=== PATIENT | male | born 1960 | race Caucasian/White ===

== ENCOUNTER 2016-07-04 08:00 | Outpatient (CLI) | payer OTHER | END 2016-07-04 08:01 | disposition home or self-care (01) | DX: I10 Essential (primary) hypertension (principal); E78.5 Hyperlipidemia, unspecified ==

== ENCOUNTER 2016-07-25 07:43 | Outpatient (CLI) | payer OTHER | END 2016-07-25 07:44 | disposition home or self-care (01) | DX: E53.9 Vitamin B deficiency, unspecified (principal) ==

== ENCOUNTER 2016-08-22 10:44 | Outpatient (CLI) | payer OTHER | END 2016-08-22 10:45 | disposition home or self-care (01) | DX: E87.5 Hyperkalemia (principal) ==

== ENCOUNTER 2016-10-24 08:27 | Outpatient (CLI) | payer OTHER ==
[2016-10-24 12:55] LABS: BASOPHILS # (AUTO) 0.1 10^3/uL (0.0-0.1); BASOPHILS % (AUTO) 0.7 %; EOSINOPHILS # (AUTO) 0.8 10^3/uL (0.0-0.7); EOSINOPHILS % (AUTO) 8.3 %; HCT - HEMATOCRIT 32.9 % (42.0-52.0); HGB - HEMOGLOBIN 11.6 g/dL (14.0-18.0); LYMPHOCYTES # (AUTO) 1.8 10^3/uL (1.5-3.5); MEAN CORPUSCULAR HEMOGLOBIN 30.2 pg (27.0-31.0); MEAN CORPUSCULAR HGB CONC 35.3 g/dL (32.0-36.0); MEAN CORPUSCULAR VOLUME 85.7 fL (80.0-94.0); MEAN PLATELET VOLUME 9.4 fL (7.4-11.4); MONOCYTES # (AUTO) 0.5 10^3/uL (0.0-1.0); MONOCYTES % (AUTO) 5.7 %; NEUTROPHILS # (AUTO) 6.3 10^3/uL (1.5-6.6); NEUTROPHILS % (AUTO) 66.3 %; RED BLOOD COUNT 3.84 10^6/uL (4.70-6.10); RED CELL DISTRIBUTION WIDTH 13.3 % (12.0-15.0); UNCORRECTED WHITE BLOOD COUNT 9.6 x10^3/uL; WHITE BLOOD COUNT 9.6 x10^3/uL (4.8-10.8)
[2016-10-24 13:31] LABS: ALBUMIN/GLOBULIN RATIO 1.3 (1.0-2.2); BILIRUBIN,TOTAL 0.5 mg/dL (0.2-1.0); BUN - BLOOD UREA NITROGEN 31 mg/dL (6-20); CALCIUM 9.3 mg/dL (8.5-10.3); CARBON DIOXIDE - CO2 24 mmol/L (21-32); CHLORIDE 106 mmol/L (101-111); CHOL/HDL RATIO 4.3 (<5.0); CHOLESTEROL 116 mg/dL; CREATININE 1.3 mg/dL (0.6-1.2); GFR - MDRD 57 (>89); GLUCOSE 210 mg/dL (70-100); HDL CHOLESTEROL 27 mg/dL; LDL/HDL RATIO 2.4 (<3.6); POTASSIUM 5.3 mmol/L (3.5-5.0); SODIUM 137 mmol/L (135-145); TOTAL PROTEIN 7.5 g/dL (6.7-8.2); TRIGLYCERIDES 119 mg/dL; VLDL CHOLESTEROL 24 mg/dL
[2016-10-24 14:52] LABS: HEMOGLOBIN A1C 0.91 g/dL
== END 2016-10-24 08:28 | disposition home or self-care (01) ==
LOC: LAB.WCP 08:27
PROVIDERS: ATTEND Family Medicine
DX: E87.5 Hyperkalemia (principal); E78.5 Hyperlipidemia, unspecified; E10.9 Type 1 diabetes mellitus without complications; E03.9 Hypothyroidism, unspecified; I10 Essential (primary) hypertension
CPT/HCPCS: 36415; 80053; 80061; 82043; 83036; 84443; 85025

== ENCOUNTER 2017-08-07 08:00 | Outpatient (CLI) | payer OTHER | END 2017-08-07 08:01 | LOC: LAB.WCP 08:00 | PROVIDERS: ATTEND Family Medicine | DX: E53.8 Deficiency of other specified B group vitamins (principal) | CPT/HCPCS: 36415; 82607 ==

== ENCOUNTER 2018-09-09 09:09 | Outpatient (CLI) | payer BC, OTHER ==
[2018-09-09 12:28] LABS: BASOPHILS # (AUTO) 0.1 10^3/uL (0.0-0.1); BASOPHILS % (AUTO) 0.9 %; EOSINOPHILS # (AUTO) 0.4 10^3/uL (0.0-0.7); EOSINOPHILS % (AUTO) 4.8 %; HGB - HEMOGLOBIN 12.6 g/dL (14.0-18.0); LYMPHOCYTES # (AUTO) 1.4 10^3/uL (1.5-3.5); LYMPHOCYTES % (AUTO) 17.8 %; MEAN CORPUSCULAR HEMOGLOBIN 29.2 pg (27.0-31.0); MEAN CORPUSCULAR HGB CONC 33.8 g/dL (32.0-36.0); MEAN CORPUSCULAR VOLUME 86.3 fL (80.0-94.0); MEAN PLATELET VOLUME 11.6 fL (7.4-11.4); MONOCYTES # (AUTO) 0.6 10^3/uL (0.0-1.0); MONOCYTES % (AUTO) 7.9 %; NEUTROPHILS # (AUTO) 5.3 10^3/uL (1.5-6.6); NEUTROPHILS % (AUTO) 68.3 %; PLT - PLATELET COUNT 199 10^3/uL (130-450); RED BLOOD COUNT 4.32 10^6/uL (4.70-6.10); RED CELL DISTRIBUTION WIDTH 12.7 % (12.0-15.0); WHITE BLOOD COUNT 7.7 x10^3/uL (4.8-10.8)
[2018-09-09 12:49] LABS: ALBUMIN 4.3 g/dL (3.2-5.5); ALBUMIN/GLOBULIN RATIO 1.1 (1.0-2.2); ALKALINE PHOSPHATASE 33 IU/L (42-121); ALT ALANINE AMINOTRANSFERASE 21 IU/L (10-60); AST ASPARTATE AMINOTRANSFERASE 21 IU/L (10-42); BILIRUBIN,TOTAL 0.8 mg/dL (0.2-1.0); BUN - BLOOD UREA NITROGEN 25 mg/dL (6-20); CALCIUM 9.2 mg/dL (8.5-10.3); CARBON DIOXIDE - CO2 24 mmol/L (21-32); CHLORIDE 104 mmol/L (101-111); CHOL/HDL RATIO 6.5 (<5.0); CHOLESTEROL 181 mg/dL; CREATININE 1.4 mg/dL (0.6-1.2); GFR - MDRD 52 (>89); GLUCOSE 180 mg/dL (70-100); HDL CHOLESTEROL 28 mg/dL; LDL CHOLESTEROL,CALCULATED 114 mg/dL; LDL/HDL RATIO 4.1 (<3.6); SODIUM 139 mmol/L (135-145); TOTAL PROTEIN 8.2 g/dL (6.7-8.2); VLDL CHOLESTEROL 39 mg/dL
== END 2018-09-09 09:10 | disposition home or self-care (01) ==
LOC: LAB.WCP 09:09
PROVIDERS: ATTEND Family Medicine
DX: I10 Essential (primary) hypertension (principal); E78.5 Hyperlipidemia, unspecified; E03.9 Hypothyroidism, unspecified
CPT/HCPCS: 36415; 80053; 80061; 83721; 84443; 85025

== ENCOUNTER 2018-09-27 08:00 | Outpatient (CLI) | payer BC ==
[2018-09-27 12:52] LABS: ALBUMIN 4.4 g/dL (3.2-5.5); ALBUMIN/GLOBULIN RATIO 1.3 (1.0-2.2); ALKALINE PHOSPHATASE 33 IU/L (42-121); ALT ALANINE AMINOTRANSFERASE 23 IU/L (10-60); AST ASPARTATE AMINOTRANSFERASE 20 IU/L (10-42); BILIRUBIN,TOTAL 0.5 mg/dL (0.2-1.0); BUN - BLOOD UREA NITROGEN 21 mg/dL (6-20); CALCIUM 9.2 mg/dL (8.5-10.3); CARBON DIOXIDE - CO2 26 mmol/L (21-32); CHLORIDE 103 mmol/L (101-111); CHOL/HDL RATIO 4.1 (<5.0); CHOLESTEROL 119 mg/dL; CREATININE 1.3 mg/dL (0.6-1.2); GFR - MDRD 57 (>89); GLUCOSE 132 mg/dL (70-100); HDL CHOLESTEROL 29 mg/dL; LDL CHOLESTEROL,CALCULATED 66 mg/dL; LDL/HDL RATIO 2.3 (<3.6); SODIUM 140 mmol/L (135-145); TOTAL PROTEIN 7.9 g/dL (6.7-8.2); VLDL CHOLESTEROL 24 mg/dL
[2018-09-27 13:37] LABS: FREE T4 (FREE THYROXINE) 1.07 ng/dL (0.58-1.64)
== END 2018-09-27 23:59 | disposition home or self-care (01) ==
LOC: LAB.WCP 08:00
PROVIDERS: ATTEND Family Medicine
DX: E78.5 Hyperlipidemia, unspecified (principal); N28.9 Disorder of kidney and ureter, unspecified; E03.9 Hypothyroidism, unspecified
CPT/HCPCS: 36415; 80053; 80061; 83721; 84439; 84443

== ENCOUNTER 2018-12-10 08:00 | Outpatient (CLI) | payer BC ==
[2018-12-10 13:06] LABS: ALBUMIN 4.1 g/dL (3.2-5.5); ALBUMIN/GLOBULIN RATIO 1.2 (1.0-2.2); ALKALINE PHOSPHATASE 38 IU/L (42-121); ALT ALANINE AMINOTRANSFERASE 24 IU/L (10-60); AST ASPARTATE AMINOTRANSFERASE 18 IU/L (10-42); BILIRUBIN,TOTAL 0.5 mg/dL (0.2-1.0); BUN - BLOOD UREA NITROGEN 20 mg/dL (6-20); CHOLESTEROL 105 mg/dL; CREATININE 1.3 mg/dL (0.6-1.2); GFR - MDRD 57 (>89); HDL CHOLESTEROL 26 mg/dL; LDL CHOLESTEROL,CALCULATED 56 mg/dL; LDL/HDL RATIO 2.2 (<3.6); TOTAL PROTEIN 7.5 g/dL (6.7-8.2); VLDL CHOLESTEROL 23 mg/dL
[2018-12-10 13:13] LABS: CALCIUM 9.2 mg/dL (8.5-10.3); CARBON DIOXIDE - CO2 28 mmol/L (21-32); CHLORIDE 104 mmol/L (101-111); GLUCOSE 119 mg/dL (70-100); SODIUM 141 mmol/L (135-145)
[2018-12-10 14:37] LABS: FREE T4 (FREE THYROXINE) 1.22 ng/dL (0.58-1.64)
== END 2018-12-10 23:59 | disposition home or self-care (01) ==
LOC: LAB.WCP 08:00
PROVIDERS: ATTEND Family Medicine
DX: E78.5 Hyperlipidemia, unspecified (principal); E03.9 Hypothyroidism, unspecified
CPT/HCPCS: 36415; 80053; 80061; 83721; 84439; 84443

== ENCOUNTER 2018-12-16 08:00 | Outpatient (CLI) | payer BC ==
[2018-12-16 12:34] LABS: THYROID STIMULATING HORMONE 2.38 uIU/mL (0.34-5.60)
[2018-12-16 12:36] LABS: FREE T4 (FREE THYROXINE) 1.2 ng/dL (0.58-1.64)
[2018-12-16 12:56] LABS: ALBUMIN 4.1 g/dL (3.2-5.5); ALBUMIN/GLOBULIN RATIO 1.1 (1.0-2.2); ALKALINE PHOSPHATASE 36 IU/L (42-121); ALT ALANINE AMINOTRANSFERASE 24 IU/L (10-60); AST ASPARTATE AMINOTRANSFERASE 20 IU/L (10-42); BILIRUBIN,TOTAL 0.6 mg/dL (0.2-1.0); BUN - BLOOD UREA NITROGEN 22 mg/dL (6-20); CALCIUM 8.7 mg/dL (8.5-10.3); CARBON DIOXIDE - CO2 27 mmol/L (21-32); CHLORIDE 104 mmol/L (101-111); CHOLESTEROL 107 mg/dL; CREATININE 1.4 mg/dL (0.6-1.2); GFR - MDRD 52 (>89); GLUCOSE 136 mg/dL (70-100); HDL CHOLESTEROL 27 mg/dL; LDL CHOLESTEROL,CALCULATED 52 mg/dL; LDL/HDL RATIO 1.9 (<3.6); SODIUM 139 mmol/L (135-145); TOTAL PROTEIN 7.7 g/dL (6.7-8.2); VLDL CHOLESTEROL 28 mg/dL
[2018-12-16 12:59] LABS: CREATININE,URINE 37.5 mg/dL; PROTEIN/CREATININE RATIO,URINE 0.7 (<=0.2)
[2018-12-16 13:23] LABS: HEMOGLOBIN A1C 0.73 g/dL; HEMOGLOBIN A1C % 7.7 % (4.6-6.2)
== END 2018-12-16 23:59 | disposition home or self-care (01) ==
LOC: LAB.WCP 08:00
DX: E10.65 Type 1 diabetes mellitus with hyperglycemia (principal); E03.9 Hypothyroidism, unspecified; I10 Essential (primary) hypertension; E78.2 Mixed hyperlipidemia
CPT/HCPCS: 36415; 80053; 80061; 81599; 82306; 82570; 82784; 83036; 83516; 83721; 84156; 84439; 84443; 86255

== ENCOUNTER 2019-04-19 09:36 | Outpatient (CLI) | payer BC, OTHER ==
[2019-04-19 12:57] VITALS: BP 153/99
--- NOTE | 2019-04-19 12:57 | SLEEP CARE CONSULTATION ---
Information from patient questionnaire entered by Aminata Marcelino. I have reviewed and concur with the information entered by Aminata Marcelino. This document represents the service I personally performed and the decisions made by me, Amaya Elliott MD, [facility]. History of Present Illness Reason for Visit: New patient Chief Complaint: reports: Other (DOT required) Duration of Symptoms: none Usual bedtime: 2200 Time it takes to fall asleep: 10 minutes Snores at night: No Observed to quit breathing while asleep: No Sleeps alone due to snoring: No Number of times waking at night: 0-1 Reasons for waking at night: reports: Bathroom Toss, Turn, or Twitch while sleeping: No Recalls having dreams: Yes Usually gets out of bed at: [id number] Feels refreshed in the morning: Yes Morning headache: No Sleepy or fatigued during the day: No Ever fallen asleep while driving: No Takes day naps: No Dreams during day naps: Yes Prior sleep studies: No Additional HPI information: I had the pleasure of seeing Mr. Busch today regarding the possibility of him having a sleep disorder. 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 His examiner indicated several risk factors for obstructive sleep apnea-hypopneaobesity, neck size > 17 inches, hypertension, and narrow oropharynx. The patient tells me that he normally goes to bed around 10 pm, and it takes him approximately 10 minutes to fall asleep. He has not been told that he snores loudly and irregularly at night. He has never been observed to stop breathing in his sleep. His sleeps in the same bed. He can recall waking up on the average of 0 - 1 times during the night. Most of the time he wakes up because of having to use the bathroom. He has never awakened because of his own snoring, choking, or having to gasp for air. There is not a lot of tossing and turning in his sleep. No somniloquy (sleep talking) or somnambulism (sleep walking). Generally he can recall having dreams. In the morning he usually gets up out of the bed around 4:30 - 5 a.m. feeling refreshed and rested. He usually does not have a morning headache. During the day he does not feel sleepy or fatigued. His score on [place] Sleepiness Scale is 2 out of 24. He has never fallen asleep while driving nor has had any accident due to sleepiness. He usually does not take naps during the day. Upon falling asleep during the day he reports having dreams. He has never had sleep paralysis, experienced cataplexy or symptoms of restless leg syndrome. He denies having impaired concentration during the day. Subjective Initial [place] Sleepiness Scale score: 2 Past Medical History Past Medical History: reports: Hypertension, Diabetes Social History The patient's occupation is retired. Patient is and lives in [place]. Have you smoked in the past 12 months: No Cigarettes per day (20/pack): 20 Years of smokin Quit date: 1999 Smoking Pack Years: 10.0 Alcohol use: No Caffeine use: Yes Caffeine amount and frequency: 2 coffee cups/day Allergies and Home Medications Drug allergies reviewed: Yes (NKDA) Home medication list reviewed: Yes (Lipitor, levothyroxine, amlodipine, losartan, gabapentin, insulin) Review of Systems Weight loss over past 5 years: 100 Cardiovascular: reports: high blood pressure Respiratory: denies: shortness of breath, wheeze, sputum production, chronic cough, other Gastrointestinal: denies: heartburn, difficulty swallowing, nausea, vomitting, diarrhea, abdominal pain, other Urinary: denies: incontinence, frequency, urgency, impotence, other Neurological: denies: headaches, seizure, head trauma, disorientation, speech dysfunction, gait or balance problems, fainting or unconsciousness, other Psychiatric: denies: Attention Deficit Hyperactivity, anxiety, depression, mood disorder, claustrophobia, other Ear/Nose/Throat: denies: nasal congestion, sinus problems, nose bleeds, dry mouth/throat, hoarseness, injury to nose, tonsillectomy, wisdom teeth removed, other Endocrine: reports: thyroid disease Musculoskeletal: denies: joint pain, neck pain, back pain, joint swelling, muscle pain or cramping, mobility problems, other Immunologic: denies: sneezing, rash, itching, allergies to food or environment, other Physical Exam Vital signs obtained and entered by: Dr. Elliott Blood Pressure: 153/99 Cuff size: regular Heart Rate: 80 O2 Saturation: 98 Height: 6 ft Weight: 244 lb Body Mass Index: 33.0 BMI Classification: Obesity Class 1 Neck circumference: 17 Mood/affect: Normal HEENT: No craniofacial malformation Nostrils: patent to airflow Turbinates: normal Septum: midline Mouth and throat: normal Soft palate: long Hard palate: normal Uvula: normal Uvula visualization: 50% Mallampati Class II Tongue: normal in size Tonsils: small Chin and jaw: normal size and position Neck: normal w/o lymphadenopathy or thyromegaly Heart: regular rate and rhythm Lungs: clear bilaterally Abdomen: soft, non-tender Extremities: no edema or clubbing Neurologic: intact, no focal deficits Impression and Plan IMPRESSION: 1. Possible Obstructive Sleep Apnea-Hypopnea Syndrome, narrow oropharynx, obesity, and comorbid diseaseshypertension and diabetes mellitus. The patient is completely asymptomatic. Pathophysiology of sleep-disordered breathing was discussed. 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 Plan: 1. Schedule a home sleep apnea test (HSAT). 2. Return for follow up after the giorgio to discuss results. I spent 100% of this visit face to face with the patient with greater than 50% of this was spent time counseling the patient and coordination of care.
== END 2019-04-19 09:37 | disposition home or self-care (01) ==
LOC: SC 09:36
PROVIDERS: ATTEND Internal Medicine Pulmonary Disease
DX: I10 Essential (primary) hypertension (principal); E11.9 Type 2 diabetes mellitus without complications; E66.9 Obesity, unspecified; Z68.32 Body mass index [BMI] 32.0-32.9, adult
CPT/HCPCS: 99203; 99212

== ENCOUNTER → 2019-05-01 | Outpatient (CLI) | payer OTHER | LOC: SC 19:30 | PROVIDERS: ATTEND Internal Medicine Pulmonary Disease | DX: G47.33 Obstructive sleep apnea (adult) (pediatric) (principal) | CPT/HCPCS: 95806 ==

== ENCOUNTER 2019-07-07 13:44 | Outpatient (CLI) | payer OTHER ==
--- NOTE | 2019-07-07 10:06 | SLEEP CARE CONSULTATION ---
Information from patient questionnaire entered by Aminata Marcelino. I have reviewed and concur with the information entered by Aminata Marcelino. This document represents the service I personally performed and the decisions made by me, Mari Kelley, RN, MSN, [employer]. History of Present Illness Service Date and Time: 07/07/2019 1344 Initial [place] Sleepiness Scale score: 2 Current Montgomery Sleepiness Scale score: 4 Additional HPI information: ESPERANZA BUSCH was called for telehealth phone visit to review the results of the recently performed home sleep study. I explained the pathophysiology behind obstructive sleep apnea. We then spent qu ite a bit of time discussing different treatment options. For mild obstructive sleep apnea, surgery and oral appliance are alternatives to nasal CPAP therapy but in moderate or severe cases, nasal CPAP is the most effective and reliable treatment. I reviewed the impact of weight changes on sleep apnea and strongly recommended losing weight. After some discussion, the patient opted to go with the nasal CPAP therapy. 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 Nasal autoCPAP set at [id number] will be ordered with rationale explained. A manual titration study will be ordered if unable to find optimal pressure with office adjustments. I explained how CPAP machine works and what to expect when using the machine. Using CPAP every night in order to get used to it was emphasized. Patient advised to put CPAP mask on before getting into bed so as not to fall asleep without CPAP. To assist acclimation to CPAP use, it could also be used for a short time during day while reading or watching TV. The patient was instructed to call the CPAP supplier to discuss any mechanical problem that may occur. If the mask given is uncomfortable or is difficult to keep on through the night even with adjustment, contact the CPAP supplier as many will replace with another mask style if notified before 30 days. If snoring or perceives is not getting enough air or too much air from the machine, notify this office. AASM patient education PAP tips will be sent to patient. Patient counseled not drink alcohol less than 4 hours before bedtime as it can increase snoring and apnea. Patient was cautioned about risks of drowsy driving until sleepiness symptoms resolve. Patient denies drowsy driving. Sleep Study - Results Polysomnography/Home Sleep Study results: Page 1 of 7 SleepView Interpretation Patient Name: Esperanza Busch. Study Date: 05/01/2019 Referred by: Keri Good PA-C Interpreting MD: Amaya Elliott MD PATIENT INFORMATION: This 58-year-old Male was referred for a type 3 portable sleep study. Sleep Study Indications: Snoring. The patient is 72.0 in and weight was 244.0 lb, which represented a BMI of 33.09. The patient has an Montgomery score of 2/24. PROCEDURE: The patient underwent a digital diagnostic portable type 3 device home sleep test; Utilizing Phizzle portable sleep monitor. The patient was trained in the office on how to connect themselves to the SleepView and verify that the device was connected properly. Sleep time (identified as AASM equivalent of Monitoring Time [MT] in this report) was recorded via actigraphy derived from an accelerometer physically integrated into the SleepView unit; also providing body position monitoring. Airflow and snore were recorded via an oral/nasal cannula. The option for a 2nd measure of airflow via oral/nasal thermistor is also present. Respiratory effort was recorded via Respiratory Inductance Plethysmography (also known as RIP technology, including the option for a secondary RIP belt). Oxygen saturation was obtained by a pulse oximeter, to identify oxygen desaturations and heart rate variations. All raw data was graphically depicted and utilized for scoring and detailed interpretive review. The patient underwent one night of study. The data was recorded internally to memory built into the SleepView unit and uploaded to [email or web address] website for scoring and interpretation. All raw data, graphically depicting all recorded channels, was utilized for scoring and detailed interpretive review. The standards put forth by the [place] [employer] were followed for the complete scoring by a Registered Partnership Manager and interpretation by a Board Certified Sleep Medicine Physician. SLEEP TIME AND EFFICIENCY: The sleep study recording began at 08:39:58 PM and ended at 04:26:45 AM. Total recording time was 466.8 minutes. The total sleep time was 448.5 minutes. The sleep efficiency was 96.1 percent. The patient spent 45.7 minutes supine, and spent 402.8 minutes non-supine. The patients own estimate of sleep time was 8.00 hours. RESPIRATORY DATA: The AHI in this report is indexed to sleep time based on actigraphy. The AASM defines this as EMILIANO. The AHI on this type 3 Home Sleep Study may understate the AHI determined on a type 1 or 2 study, since EEG is not monitored resulting in the inability to score non-desaturating hypopneas. Based on 4% Calculation: The AHI4% calculation of 18.7 per hour of recording time was based on a total of 34 scored apneas and 106 scored hypopneas with 4% desaturations. Supine AHI4%: 13.1 per hour. Non-supine AHI4%: 19.1 per hour. Oxygen Summary: Patient's baseline O2 saturation was 96.8 %. The patient spent 20.4 minutes at an oxygen saturation less than 90%, and 6.2 minutes less than 85%. The desaturation index was 20.2 events per hour sleep time. The lowest saturation was 68.7 %. SNORING: The percent of the study time spent snoring was 27.6 %. The Snoring Count was 3913 . The Snoring Index was Patient Name: Esperanza Busch Study Date: 05/01/2019 : 1960 Page 2 of 7 523.5 . PULSE RATE REVIEW: The mean heart rate was 73 beats per minute. The rate ranged from a low of 31 to a high of 105 beats per minute. DIAGNOSIS CODE: Moderate obstructive sleep apnea G47.33, occurring independently of body position. Moderate desaturations were noted Physical Exam Height: 6 ft Impression and Plan 1. Obstructive Sleep Apnea-Hypopnea Syndrome, moderate, with lowest oxygen saturation of 68.9%. Positive pressure therapy could benefit his diabetes and hypertension. 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 He is to contact his DOT physician and notify that he will be starting treatment. His compliance use can then be sent to the DOT physician after his 1st compliance visit. As mentioned above, the patient will be started on nasal autoCPAP therapy with pressure set at 4 cmH2O. A manual titration study will be completed if unable to find optimal treatment pressure with office adjustments. Compliance guidelines also reviewed. A copy of compliance guidelines will be given for reference at check out. * Nasal auto CPAP therapy, pressure at 4-15 cm H2O. * Attempt to lose weight. * Avoid alcohol consumption near bedtime. * The patient is again cautioned about driving until sleepiness completely resolves. * Return one month after CPAP obtained. I will assess response to therapy and compliance at that time. Visit Type: Telehealth Phone (to minimize the risk of COVID-19 exposure, the patient has agreed to telehealth visit and to bill his insurance.) Location of Provider: Home Patient agrees and consents to this telehealth visit type: Yes Time Spent with Patient (minutes): 20 Provider Statement: I spent 100% of the Telehealth Phone Call with the patient with greater than 50% spent counseling the patient and coordination of care.
== END 2019-07-07 13:45 | disposition home or self-care (01) ==
LOC: SC 13:44
PROVIDERS: ATTEND Nurse Practitioner Family
DX: G47.33 Obstructive sleep apnea (adult) (pediatric) (principal)

== ENCOUNTER 2020-01-17 16:25 | Outpatient (CLI) | payer OTHER ==
--- NOTE | 2020-01-17 10:13 | SLEEP CARE CONSULTATION ---
Information from patient questionnaire entered by Aminata Marcelino. I have reviewed and concur with the information entered by Aminata Marcelino. This document represents the service I personally performed and the decisions made by me, Joy Moon ARNP. History of Present Illness Service Date and Time: 01/17/2020 0940 Previous diagnosis: Moderate, Obstructive Sleep Apnea-Hypopnea Syndrome AHI: 18.7 Reason for follow up: first compliance Equipment type: CPAP Equipment obtained from: [employer] Mask style: Nasal Backup mask available: Yes (old mask) Last cushion change: 3 months or more Prior sleep studies: Yes Year and Where: 04/2019 [facility] Type of Sleep Study: Home sleep study HPI additional information: ESPERANZA BALDERAS was diagnosed to have moderate, AHI 18.7, obstructive sleep apnea-hypopnea syndrome and returned today for CPAP therapy first compliance follow-up via Telehealth visit. CPAP Compliance Data - Data Reviewed with Patient Average duration of nightly device use: 6 hours 3 minutes Compliance rate %: 73 Current pressure setting (cmH2O): 4-15 (median 10.9 cm H2O, 95% 13.8 cm H2O, max 14.6 cm H2O) Average residual AHI: 0.5 Central apnea: 0.0 Obstructive apnea: 0.1 Average large leak: 2.8 L/min Subjective Patient concerns: reports: dry mouth, nose, throat (dry mouth). denies: aerophagia, mask discomfort, air blowing in eyes, mask leak noise, condensation in mask/hose, nasal congestion, epistaxis, other Observed to snore while using device: No (not that he knows of) Current pressure setting perceived as: comfortable On therapy, patient: reports: sleeping better, awakening more refreshed, being more awake and alert during the day, more rested overall. denies: drowsiness while driving Initial [place] Sleepiness Scale score: 2 Current Andreas Sleepiness Scale score: 5 Allergies and Home Medications Drug allergies reviewed: Yes (NKDA) Home medication list reviewed: Yes (no changes) Review of Systems Review of systems same as previous: Yes (no changes) Physical Exam Vital signs obtained and entered by: Telehealth visit due to Covid pandemic, no vitals obtained Height: 6 ft Impression and Plan 1. Obstructive Sleep Apnea-Hypopnea Syndrome, moderate, with fair treatment compliance and good apnea control. On CPAP therapy, the patient has better sleep quality and is more rested overall. Patient has been having nightmares and finds his mask off without remembering that he is taking it off. He has reached compliance with his CPAP therapy and has excellent apnea control. He is comfortable with using the CPAP now. He has had some mouth dryness. He thinks he may sleep with mouth open some, I advised him to obtain a chin strap to help keep mouth closed from his DME supplier. Oral dryness can be reduced by adjusting humidity setting higher or heated hose lower or by adjusting both settings. Patient voiced understanding and agreement with plan of care. Patient's apnea severity and rationale for treatment to reduce apnea, improve sleep quality and reduce cardiovascular and cerebrovascular events was reviewed. I also reviewed the benefit of consistent device use of CPAP for hypertension and diabetes. * Change autoCPAP pressure to 10-15 cmH2O * Notify me if snoring with mask or feeling that the pressure is too much or too little * Attempt to lose weight * Call this office if any problems using CPAP * Return for follow up in 1 year, or sooner if concerns arise Counseling Topics: Spare mask, Weight loss health impact Visit Type: Telehealth Video Video Type: Doximity Patient Location: Car Location of Provider: Home Patient agrees and consents to this telehealth visit type: Yes Patient agrees to have their insurance billed: Yes Time Spent with Patient (minutes): 21 Provider Statement: I spent 100% of the Telehealth Video Call with the patient with greater than 50% spent counseling the patient and coordination of care.
== END 2020-01-17 16:26 | disposition home or self-care (01) ==
LOC: SC 16:25
PROVIDERS: ATTEND Nurse Practitioner Family
DX: G47.33 Obstructive sleep apnea (adult) (pediatric) (principal)

== ENCOUNTER 2020-04-13 07:52 | Outpatient (CLI) | payer OTHER ==
[2020-04-13 07:56] LABS: BASOPHILS # (AUTO) 0.1 10^3/uL (0.0-0.1); BASOPHILS % (AUTO) 0.7 %; EOSINOPHILS # (AUTO) 0.5 10^3/uL (0.0-0.7); EOSINOPHILS % (AUTO) 7.7 %; HGB - HEMOGLOBIN 11.4 g/dL (14.0-18.0); LYMPHOCYTES # (AUTO) 1.3 10^3/uL (1.5-3.5); LYMPHOCYTES % (AUTO) 19.3 %; MEAN CORPUSCULAR HEMOGLOBIN 29.3 pg (27.0-31.0); MEAN CORPUSCULAR HGB CONC 33.5 g/dL (32.0-36.0); MEAN CORPUSCULAR VOLUME 87.4 fL (80.0-94.0); MEAN PLATELET VOLUME 10.7 fL (7.4-11.4); MONOCYTES # (AUTO) 0.5 10^3/uL (0.0-1.0); MONOCYTES % (AUTO) 7.7 %; NEUTROPHILS # (AUTO) 4.3 10^3/uL (1.5-6.6); NEUTROPHILS % (AUTO) 64.5 %; PLT - PLATELET COUNT 209 10^3/uL (130-450); RED BLOOD COUNT 3.89 10^6/uL (4.70-6.10); RED CELL DISTRIBUTION WIDTH 12.4 % (12.0-15.0); WHITE BLOOD COUNT 6.7 x10^3/uL (4.8-10.8)
[2020-04-13 08:15] LABS: ALBUMIN 4.1 g/dL (3.2-5.5); ALBUMIN/GLOBULIN RATIO 1.1 (1.0-2.2); ALKALINE PHOSPHATASE 50 IU/L (42-121); ALT ALANINE AMINOTRANSFERASE 18 IU/L (10-60); AST ASPARTATE AMINOTRANSFERASE 17 IU/L (10-42); BILIRUBIN,TOTAL 0.5 mg/dL (0.2-1.0); BUN - BLOOD UREA NITROGEN 38 mg/dL (6-20); CALCIUM 9.3 mg/dL (8.5-10.3); CARBON DIOXIDE - CO2 25 mmol/L (21-32); CHLORIDE 104 mmol/L (101-111); CHOLESTEROL 111 mg/dL; CREATININE 1.7 mg/dL (0.6-1.2); GLUCOSE 179 mg/dL (70-100); HDL CHOLESTEROL 28 mg/dL; LDL CHOLESTEROL,CALCULATED 61 mg/dL; LDL/HDL RATIO 2.2 (<3.6); TOTAL PROTEIN 7.8 g/dL (6.7-8.2); VLDL CHOLESTEROL 22 mg/dL
[2020-04-13 08:31] LABS: CREATININE,URINE 151.7 mg/dL; MICROALBUM/CREATININE RATIO,UR 362.6 ug/mg (<30.0)
--- NOTE | 2020-04-13 13:00 | Ultrasound Report ---
PROCEDURE: Aorta Screening INDICATIONS: TOBACCO ABUSE TECHNIQUE: Real time scanning was performed of the aorta and iliac arteries, with image documentatio n. COMPARISON: none FINDINGS: Aorta: Proximal aortic diameter measures 2.8 x 2.3 x 2.3 cm. Mid-aorta measures 1.8 x 1.9 x 1.9 cm. Distal aortic diameter is 1.6 x 1.4 x 1.7 cm. Iliac arteries: Right common iliac artery measures 1.3 x 0.9 cm. Left common iliac artery measures 1.2 x 0.8 cm. IMPRESSION: Unremarkable exam. Reviewed by: Anay Kenny MD on 04/13/2020 12:59 PM PST Approved by: Anay Kenny MD on 04/13/2020 12:59 PM PST Station ID: [id number]
--- NOTE | 2020-04-13 15:25 | CT Report ---
PROCEDURE: Low Dose Lung Cancer Screen INDICATIONS: SCREEN FOR LUNG CA TECHNIQUE: Noncontrast low-dose 5 mm thick sections acquired from the pulmonary apices to the posterior costophr enic angles. 7 mm thick coronal and sagittal MIP reformats were then acquired. For radiation dose r eduction, the following was used: automated exposure control, adjustment of mA and/or kV according t o patient size. COMPARISON: None. FINDINGS: Image quality: Excellent. Lungs and pleura: Within the anterior right upper lobe there is a small cluster of pneumatoceles wit h overall combined dimension of 1.9 cm and each small pneumatocele measuring only approximately the 3 -4 mm in maximal dimension. No adjacent inflammation is seen. Chronicity is uncertain. Mediastinum: Heart size is normal. No pericardial effusion. There is moderate coronary artery calc ification. No mediastinal adenopathy by size criteria. Thoracic aorta and central pulmonary arteries are normal in size. Esophagus is normal in caliber. No hiatal hernia. Bones and chest wall: No suspicious bony lesions. No vertebral body compression fractures. No axil felice or supraclavicular adenopathy by size criteria. The thyroid is normal in size. Abdomen: Visualized upper abdomen solid organs and bowel loops appear normal in the absence of contr ast. IMPRESSION: There is a small cluster of very small pneumatoceles seen within the anterior subpleural right upper lobe. The chronicity is uncertain, no active inflammatory process is associated, and follow-up of thi s finding will be obtained during subsequent screening CT scanning for early development of lung carc inoma. Lung RADS category 1, follow-up noncontrast low-dose CT scanning for early detection of lung carcinom a is recommended. Reviewed by: Robert Max MD on 04/13/2020 3:24 PM PST Approved by: Robert Max MD on 04/13/2020 3:24 PM PST Station ID: [id number]
--- NOTE | 2020-04-13 17:06 | XRAY Report ---
PROCEDURE: Foot 3 View BILAT INDICATIONS: BILAT FOOT PAIN TECHNIQUE: 3 views of the right foot and left foot were acquired. COMPARISON: None FINDINGS: Bones: Subacute appearing right second metatarsal fracture. Acute appearing right third metatarsal fr acture. No suspicious bony lesions. Bilateral dorsal and plantar calcaneal bone spurs. Bilateral midf oot osteoarthritis. Soft tissues: No tibiotalar joint effusion. Achilles tendon appears normal. IMPRESSION: 1. Right second and third metatarsal fractures. 2. Bilateral midfoot osteoarthritis. 3. Bilateral calcaneal bone spurs. Reviewed by: Maru Canas MD, PhD on 04/13/2020 4:05 PM [place] Approved by: Maru Canas MD, PhD on 04/13/2020 4:05 PM [facility] Station ID: [id number]
[2020-04-14 12:58] LABS: HEPATITIS C ANTIBODY NON-REACTIVE (NON-REACTIVE)
== END 2020-04-13 07:53 | disposition home or self-care (01) ==
LOC: DI 07:52
PROVIDERS: ATTEND Physician Assistant Medical
DX: Z12.2 Encounter for screening for malignant neoplasm of respiratory organs (principal); J98.4 Other disorders of lung; M77.32 Calcaneal spur, left foot; M77.31 Calcaneal spur, right foot; S92.321A Displaced fracture of second metatarsal bone, right foot, initial encounter for closed fracture; S92.331A Displaced fracture of third metatarsal bone, right foot, initial encounter for closed fracture; M19.072 Primary osteoarthritis, left ankle and foot; M19.071 Primary osteoarthritis, right ankle and foot; E78.5 Hyperlipidemia, unspecified; E10.9 Type 1 diabetes mellitus without complications; E53.8 Deficiency of other specified B group vitamins; Z12.5 Encounter for screening for malignant neoplasm of prostate; E03.9 Hypothyroidism, unspecified; R53.83 Other fatigue; Z01.84 Encounter for antibody response examination; Z87.891 Personal history of nicotine dependence
CPT/HCPCS: 36415; 80053; 80061; 82043; 82570; 82607; 83036; 83721; 84153; 84443; 85025; 86803

== ENCOUNTER 2020-07-30 11:43 | Outpatient (CLI) | payer OTHER ==
--- NOTE | 2020-07-30 09:12 | XRAY Report ---
PROCEDURE: Foot 3 View LT INDICATIONS: NONDISPLACED FX OF LEFT 2ND METATARSAL TECHNIQUE: 3 views of the foot were acquired. COMPARISON: 04/13/2020 FINDINGS: Bones: Healed or nearly healed fractures involving second and third metatarsal shafts are seen. Moder ate forefoot joint osteoarthritic changes are seen. No acute fracture or dislocation. Well-defined a small plantar and dorsal calcaneal enthesophytes are seen. No suspicious bony lesions. Soft tissues: No tibiotalar joint effusion. Achilles tendon appears normal. IMPRESSION: Healed or nearly healed second and third metatarsal shaft fractures. No new fracture or dislocation. Left foot joint osteoarthritis and calcaneal enthesophytes as above. Reviewed by: Mayco Earl MD on 07/30/2020 9:10 AM PDT Approved by: Mayco Earl MD on 07/30/2020 9:10 AM PDT Station ID: [id number]
== END 2020-07-30 23:59 | disposition home or self-care (01) ==
LOC: DI.N 11:43
PROVIDERS: ATTEND Physician Assistant
DX: S92.325D Nondisplaced fracture of second metatarsal bone, left foot, subsequent encounter for fracture with routine healing (principal); S92.335D Nondisplaced fracture of third metatarsal bone, left foot, subsequent encounter for fracture with routine healing; M19.072 Primary osteoarthritis, left ankle and foot; M77.32 Calcaneal spur, left foot

== ENCOUNTER 2020-08-11 09:59 | Outpatient (CLI) | payer OTHER ==
[2020-08-11 14:01] LABS: CALCIUM 8.8 mg/dL (8.5-10.3); CREATININE 1.6 mg/dL (0.6-1.2); POTASSIUM 4.9 mmol/L (3.5-5.0)
[2020-08-11 19:14] LABS: ESTIMATED AVERAGE GLUCOSE 226 mg/dL (70-100); HEMOGLOBIN A1c% 9.5 % (4.27-6.07)
== END 2020-08-11 10:00 | disposition home or self-care (01) ==
LOC: LAB.N 09:59
PROVIDERS: ATTEND Physician Assistant Medical
DX: E10.9 Type 1 diabetes mellitus without complications (principal)
CPT/HCPCS: 36415; 80048; 83036

== ENCOUNTER 2020-11-10 09:33 | Outpatient (CLI) | payer OTHER ==
[2020-11-10 14:20] LABS: ALBUMIN 4.1 g/dL (3.2-5.5); ALBUMIN/GLOBULIN RATIO 1.2 (1.0-2.2); ALKALINE PHOSPHATASE 30 IU/L (42-121); ALT ALANINE AMINOTRANSFERASE 18 IU/L (10-60); AST ASPARTATE AMINOTRANSFERASE 17 IU/L (10-42); BUN - BLOOD UREA NITROGEN 34 mg/dL (6-20); CARBON DIOXIDE - CO2 25 mmol/L (21-32); CHLORIDE 107 mmol/L (101-111); CHOL/HDL RATIO 3.7 (<5.0); CHOLESTEROL 116 mg/dL; CREATININE 1.5 mg/dL (0.6-1.2); ESTIMATED AVERAGE GLUCOSE 220 mg/dL (70-100); GFR - MDRD 48 (>89); GLUCOSE 231 mg/dL (70-100); HDL CHOLESTEROL 31 mg/dL; HEMOGLOBIN A1c% 9.3 % (4.27-6.07); LDL CHOLESTEROL,CALCULATED 66 mg/dL; LDL/HDL RATIO 2.1 (<3.6); POTASSIUM 4.9 mmol/L (3.5-5.0); SODIUM 140 mmol/L (135-145); TOTAL PROTEIN 7.6 g/dL (6.7-8.2); TRIGLYCERIDES 96 mg/dL; VLDL CHOLESTEROL 19 mg/dL
== END 2020-11-10 09:34 | disposition home or self-care (01) ==
LOC: LAB.N 09:33
PROVIDERS: ATTEND Physician Assistant Medical
DX: E10.9 Type 1 diabetes mellitus without complications (principal)
CPT/HCPCS: 36415; 80053; 80061; 83036; 83721

== ENCOUNTER 2021-04-04 09:30 | Outpatient (CLI) | payer OTHER ==
--- NOTE | 2021-04-04 09:50 | SLEEP CARE CONSULTATION ---
Information from patient questionnaire entered by Karina Recinos MA. I have reviewed and concur with the information entered by Karina Recinos MA. This document represents the service I personally performed and the decisions made by , Joy Moon ARNP. History of Present Illness Service Date and Time: 04/04/2021 0940 Previous diagnosis: Moderate, Obstructive Sleep Apnea-Hypopnea Syndrome AHI: 18.7 Reason for follow up: annual (LAST SEEN 12/2019) Equipment type: CPAP Equipment obtained from: Other (online, change in insurance; will cont to purchase on own) Mask style: Full face Backup mask available: Yes (old mask) Prior sleep studies: Yes Year and Where: 04/2019 [facility] Type of Sleep Study: Home sleep study HPI additional information: ESPERANZA BALDERAS was diagnosed to have moderate, AHI 18.7, obstructive sleep ap demi-hypopnea syndrome and returns via video Telehealth visit today for CPAP therapy annual follow-up. Sleep Study - Results Type of Sleep Study: Home sleep study Prior sleep studies: Yes Year and Where: 04/2019 [facility] CPAP Compliance Data - Data Reviewed with Patient Average duration of nightly device use: 6 HOURS 37 MINUTES Compliance rate %: 68 (30 DAY COMP. 80%) Current pressure setting (cmH2O): 10-15 Average residual AHI: 0.6 Central apnea: 0 Average large leak: 11.0 Subjective Missed days of use due to: reports: other (broke arm, unable to put water in chamber; will take mask off at night) Patient concerns: reports: mask leak noise, condensation in mask/hose (occasinal), dry mouth, nose, throat (nightly). denies: aerophagia, mask discomfort, air blowing in eyes, nasal congestion, epistaxis, other Observed to snore while using device: No Current pressure setting perceived as: comfortable On therapy, patient: reports: sleeping better, awakening more refreshed, being more awake and alert during the day, more rested overall. denies: drowsiness while driving Initial Pierce Sleepiness Scale score: 2 Current Pierce Sleepiness Scale score: 2 Allergies and Home Medications Home medication list reviewed: Yes (no changes) Review of Systems Review of systems same as previous: No (fell in Oct, broke arm, surgery to fix) Physical Exam Vital signs obtained and entered by: Telehealth visit to reduce exposure during Covid pandemic Height: 6 ft Impression and Plan 1. Obstructive Sleep Apnea-Hypopnea Syndrome, moderate, with good treatment compliance and excellent apnea control. On CPAP therapy, the patient has better sleep quality and is more rested overall. Patient has 80% compliance in the last 30 days. He had some decreased compliance in January because he fell and broke his arm. He was unable to manipulate changing the water in his device and wear mask due to the limitations of his arm. He has now brought up his compliance very well. He has also been having difficulty with dry mouth every night. He tried to turn off his humidity but then he got gurgling in the hose from the condensation. Oral dryness can be reduced by adjusting humidity setting higher or heated hose lower or by adjusting both settings. He was encouraged to turn up the humidity and then use the heated hose to control the condensation. He voiced understanding. Patient's apnea severity and rationale for treatment to reduce apnea, improve sleep quality and reduce cardiovascular and cerebrovascular events was reviewed. I also reviewed the benefit of consistent device use of CPAP for hypertension and diabetes. Patient was encouraged to lose weight for their overall health and to reduce apneas. * Continue auto CPAP pressure at 10-15 cmH2O * Notify me if snoring with mask or feeling that the pressure is too much or too little * Attempt to lose weight * Call this office if any problems using CPAP * Return for follow up in 1 year, or sooner if concerns arise Counseling Topics: Spare mask, Weight loss health impact Visit Type: Telehealth Video Video Type: VSee Patient Location: Home Location of Provider: Office Patient agrees and consents to this telehealth visit type: Yes Patient agrees to have their insurance billed: Yes Time Spent with Patient (minutes): 20 Provider Statement: I spent 100% of the Telehealth Video Call with the patient with greater than 50% spent counseling the patient and coordination of care.
== END 2021-04-04 09:31 | disposition home or self-care (01) ==
LOC: SC 09:30
PROVIDERS: ATTEND Nurse Practitioner Family
DX: G47.33 Obstructive sleep apnea (adult) (pediatric) (principal)

== ENCOUNTER 2021-04-05 07:00 | Outpatient (CLI) | payer OTHER ==
[2021-04-05 13:54] LABS: CREATININE 1.7 mg/dL (0.6-1.2); POTASSIUM 4.5 mmol/L (3.5-5.0)
[2021-04-05 14:03] LABS: ESTIMATED AVERAGE GLUCOSE 200 mg/dL (70-100); HEMOGLOBIN A1c% 8.6 % (4.27-6.07)
== END 2021-04-05 23:59 | disposition home or self-care (01) ==
LOC: LAB.WCP 07:00
PROVIDERS: ATTEND Physician Assistant Medical
DX: E10.9 Type 1 diabetes mellitus without complications (principal)
CPT/HCPCS: 36415; 80048; 83036

== ENCOUNTER 2021-07-13 09:05 | Outpatient (CLI) | payer OTHER ==
[2021-07-13 13:56] LABS: BASOPHILS # (AUTO) 0.1 10^3/uL (0.0-0.1); BASOPHILS % (AUTO) 0.7 %; EOSINOPHILS # (AUTO) 0.5 10^3/uL (0.0-0.7); EOSINOPHILS % (AUTO) 6.6 %; HCT - HEMATOCRIT 32.1 % (42.0-52.0); HGB - HEMOGLOBIN 11.1 g/dL (14.0-18.0); LYMPHOCYTES # (AUTO) 1.4 10^3/uL (1.5-3.5); MEAN CORPUSCULAR HEMOGLOBIN 29.8 pg (27.0-31.0); MEAN CORPUSCULAR HGB CONC 34.6 g/dL (32.0-36.0); MEAN CORPUSCULAR VOLUME 86.3 fL (80.0-94.0); MEAN PLATELET VOLUME 11.7 fL (7.4-11.4); MONOCYTES # (AUTO) 0.6 10^3/uL (0.0-1.0); MONOCYTES % (AUTO) 8.3 %; NEUTROPHILS # (AUTO) 4.5 10^3/uL (1.5-6.6); NEUTROPHILS % (AUTO) 64.3 %; PLT - PLATELET COUNT 198 10^3/uL (130-450); RED BLOOD COUNT 3.72 10^6/uL (4.70-6.10); RED CELL DISTRIBUTION WIDTH 12.7 % (12.0-15.0)
[2021-07-13 14:18] LABS: CREATININE,URINE 113.9 mg/dL; MICROALBUM/CREATININE RATIO,UR 740.1 ug/mg (<30.0); MICROALBUMIN,URINE 84.3 mg/dL (0-300.0)
[2021-07-13 14:19] LABS: ESTIMATED AVERAGE GLUCOSE 192 mg/dL (70-100); HEMOGLOBIN A1c% 8.3 % (4.27-6.07)
[2021-07-13 14:22] LABS: ALBUMIN 4.4 g/dL (3.2-5.5); ALBUMIN/GLOBULIN RATIO 1.2 (1.0-2.2); ALKALINE PHOSPHATASE 33 IU/L (42-121); ALT ALANINE AMINOTRANSFERASE 20 IU/L (10-60); AST ASPARTATE AMINOTRANSFERASE 19 IU/L (10-42); BILIRUBIN,TOTAL 0.6 mg/dL (0.2-1.0); BUN - BLOOD UREA NITROGEN 40 mg/dL (6-20); CALCIUM 9.1 mg/dL (8.5-10.3); CARBON DIOXIDE - CO2 25 mmol/L (21-32); CHLORIDE 102 mmol/L (101-111); CHOLESTEROL 109 mg/dL; CREATININE 1.7 mg/dL (0.6-1.2); GFR - MDRD 41 (>89); GLUCOSE 232 mg/dL (70-100); HDL CHOLESTEROL 27 mg/dL; LDL CHOLESTEROL,CALCULATED 61 mg/dL; LDL/HDL RATIO 2.3 (<3.6); POTASSIUM 5.3 mmol/L (3.5-5.0); SODIUM 136 mmol/L (135-145); TRIGLYCERIDES 103 mg/dL; VLDL CHOLESTEROL 21 mg/dL
[2021-07-13 14:30] LABS: THYROID STIMULATING HORMONE 8.42 uIU/mL (0.34-5.60)
[2021-07-13 15:02] LABS: FREE T4 (FREE THYROXINE) 1.17 ng/dL (0.58-1.64)
== END 2021-07-13 09:06 | disposition home or self-care (01) ==
LOC: LAB.N 09:05
PROVIDERS: ATTEND Physician Assistant Medical
DX: E10.9 Type 1 diabetes mellitus without complications (principal); Z12.5 Encounter for screening for malignant neoplasm of prostate; E03.9 Hypothyroidism, unspecified; I10 Essential (primary) hypertension
CPT/HCPCS: 36415; 80053; 80061; 82043; 82570; 83036; 83721; 84153; 84439; 84443; 85025

== ENCOUNTER 2021-09-18 07:21 | Outpatient (CLI) | payer OTHER ==
[2021-09-18 12:12] LABS: BASOPHILS # (AUTO) 0.1 10^3/uL (0.0-0.1); BASOPHILS % (AUTO) 0.7 %; EOSINOPHILS # (AUTO) 0.6 10^3/uL (0.0-0.7); EOSINOPHILS % (AUTO) 7.2 %; HCT - HEMATOCRIT 34.7 % (42.0-52.0); HGB - HEMOGLOBIN 11.6 g/dL (14.0-18.0); LYMPHOCYTES # (AUTO) 1.5 10^3/uL (1.5-3.5); LYMPHOCYTES % (AUTO) 17.4 %; MEAN CORPUSCULAR HEMOGLOBIN 29.2 pg (27.0-31.0); MEAN CORPUSCULAR HGB CONC 33.4 g/dL (32.0-36.0); MEAN CORPUSCULAR VOLUME 87.4 fL (80.0-94.0); MEAN PLATELET VOLUME 11.8 fL (7.4-11.4); MONOCYTES # (AUTO) 0.6 10^3/uL (0.0-1.0); MONOCYTES % (AUTO) 7.6 %; NEUTROPHILS # (AUTO) 5.7 10^3/uL (1.5-6.6); NEUTROPHILS % (AUTO) 66.9 %; PLT - PLATELET COUNT 219 10^3/uL (130-450); RED BLOOD COUNT 3.97 10^6/uL (4.70-6.10); RED CELL DISTRIBUTION WIDTH 12.5 % (12.0-15.0); WHITE BLOOD COUNT 8.5 x10^3/uL (4.8-10.8)
[2021-09-18 12:36] LABS: ALBUMIN 4.3 g/dL (3.2-5.5); ALBUMIN/GLOBULIN RATIO 1.1 (1.0-2.2); ALKALINE PHOSPHATASE 39 IU/L (42-121); ALT ALANINE AMINOTRANSFERASE 15 IU/L (10-60); AST ASPARTATE AMINOTRANSFERASE 16 IU/L (10-42); BILIRUBIN,TOTAL 0.4 mg/dL (0.2-1.0); BUN - BLOOD UREA NITROGEN 43 mg/dL (6-20); CALCIUM 9.5 mg/dL (8.5-10.3); CARBON DIOXIDE - CO2 25 mmol/L (21-32); CHLORIDE 102 mmol/L (101-111); CHOL/HDL RATIO 4.4 (<5.0); CHOLESTEROL 129 mg/dL; CREATININE 1.9 mg/dL (0.6-1.2); GFR - MDRD 36 (>89); GLUCOSE 183 mg/dL (70-100); HDL CHOLESTEROL 29 mg/dL; LDL CHOLESTEROL,CALCULATED 61 mg/dL; LDL/HDL RATIO 2.1 (<3.6); PHOSPHORUS 4.7 mg/dL (2.5-4.6); POTASSIUM 4.6 mmol/L (3.5-5.0); SODIUM 137 mmol/L (135-145); TOTAL PROTEIN 8.3 g/dL (6.7-8.2); TRIGLYCERIDES 195 mg/dL; VLDL CHOLESTEROL 39 mg/dL
[2021-09-18 12:51] LABS: FERRITIN 75.1 ng/mL (23.9-336.2)
[2021-09-18 12:59] LABS: ESTIMATED AVERAGE GLUCOSE 180 mg/dL (70-100); HEMOGLOBIN A1c% 7.9 % (4.27-6.07)
[2021-09-18 14:11] LABS: % IRON SATURATION 15 % (20-50); IRON 48 ug/dL (45-182); TOTAL IRON BINDING CAPACITY 325 ug/dL (250-450); TRANSFERRIN 232 mg/dL (180-329)
[2021-09-18 14:15] LABS: CREATININE,URINE 148.5 mg/dL; MICROALBUM/CREATININE RATIO,UR 358.9 ug/mg (<30.0); MICROALBUMIN,URINE 53.3 mg/dL (0-300.0)
== END 2021-09-18 07:22 | disposition home or self-care (01) ==
LOC: LAB.N 07:21
PROVIDERS: ATTEND Physician Assistant Medical
DX: D64.9 Anemia, unspecified (principal); E10.40 Type 1 diabetes mellitus with diabetic neuropathy, unspecified
CPT/HCPCS: 36415; 80053; 80061; 80069; 82043; 82570; 82607; 82728; 83036; 83540; 83721; 84466; 85025

== ENCOUNTER 2022-01-14 10:52 | Outpatient (CLI) | payer OTHER ==
[2022-01-14 18:07] LABS: CREATININE,URINE 122.6 mg/dL; MICROALBUM/CREATININE RATIO,UR 528.5 ug/mg (<30.0); MICROALBUMIN,URINE 64.8 mg/dL (0-300.0)
== END 2022-01-14 10:53 | disposition home or self-care (01) ==
LOC: LAB.N 10:52
PROVIDERS: ATTEND Student in an Organized Health Care Education/Training Program
DX: E11.69 Type 2 diabetes mellitus with other specified complication (principal)
CPT/HCPCS: 82043; 82570

== ENCOUNTER 2022-04-02 07:06 | Outpatient (CLI) | payer OTHER ==
[2022-04-02 12:31] LABS: ALBUMIN/GLOBULIN RATIO 1.2 (1.0-2.2); ALKALINE PHOSPHATASE 37 IU/L (42-121); ALT ALANINE AMINOTRANSFERASE 22 IU/L (10-60); AST ASPARTATE AMINOTRANSFERASE 25 IU/L (10-42); BILIRUBIN,TOTAL 0.8 mg/dL (0.2-1.0); BUN - BLOOD UREA NITROGEN 36 mg/dL (6-20); CARBON DIOXIDE - CO2 25 mmol/L (21-32); CHLORIDE 105 mmol/L (101-111); CHOL/HDL RATIO 3.4 (<5.0); CHOLESTEROL 115 mg/dL; CREATININE 1.8 mg/dL (0.6-1.2); GFR - MDRD 39 (>89); GLUCOSE 122 mg/dL (70-100); HDL CHOLESTEROL 34 mg/dL; LDL CHOLESTEROL,CALCULATED 69 mg/dL; PHOSPHORUS 3.6 mg/dL (2.5-4.6); POTASSIUM 4.9 mmol/L (3.5-5.0); SODIUM 137 mmol/L (135-145); TOTAL PROTEIN 7.4 g/dL (6.7-8.2); TRIGLYCERIDES 59 mg/dL; VLDL CHOLESTEROL 12 mg/dL
[2022-04-02 12:38] LABS: ESTIMATED AVERAGE GLUCOSE 154 mg/dL (70-100)
== END 2022-04-02 07:07 | disposition home or self-care (01) ==
LOC: LAB.N 07:06
PROVIDERS: ATTEND Student in an Organized Health Care Education/Training Program
DX: E11.69 Type 2 diabetes mellitus with other specified complication (principal)
CPT/HCPCS: 36415; 80053; 80061; 83036; 83721; 84100

== ENCOUNTER 2022-04-10 22:19 | Emergency (ER) | payer OTHER ==
[2022-04-10 22:39] LABS: BASOPHILS # (AUTO) 0.1 10^3/uL (0.0-0.1); BASOPHILS % (AUTO) 0.8 %; EOSINOPHILS # (AUTO) 0.5 10^3/uL (0.0-0.7); EOSINOPHILS % (AUTO) 5.8 %; HGB - HEMOGLOBIN 11.3 g/dL (14.0-18.0); LYMPHOCYTES # (AUTO) 1.8 10^3/uL (1.5-3.5); LYMPHOCYTES % (AUTO) 21.3 %; MEAN CORPUSCULAR HEMOGLOBIN 28.6 pg (27.0-31.0); MEAN CORPUSCULAR HGB CONC 32.3 g/dL (32.0-36.0); MEAN CORPUSCULAR VOLUME 88.6 fL (80.0-94.0); MEAN PLATELET VOLUME 10.5 fL (7.4-11.4); MONOCYTES # (AUTO) 0.6 10^3/uL (0.0-1.0); MONOCYTES % (AUTO) 7.4 %; NEUTROPHILS # (AUTO) 5.5 10^3/uL (1.5-6.6); NEUTROPHILS % (AUTO) 64.4 %; PLT - PLATELET COUNT 348 10^3/uL (130-450); RED BLOOD COUNT 3.95 10^6/uL (4.70-6.10); RED CELL DISTRIBUTION WIDTH 13.2 % (12.0-15.0); WHITE BLOOD COUNT 8.6 x10^3/uL (4.8-10.8)
[2022-04-10 22:57] LABS: ALBUMIN 3.8 g/dL (3.2-5.5); ALBUMIN/GLOBULIN RATIO 0.9 (1.0-2.2); BILIRUBIN,TOTAL 0.6 mg/dL (0.2-1.0); CALCIUM 8.6 mg/dL (8.5-10.3); CREATININE 1.9 mg/dL (0.6-1.2); POTASSIUM 4.8 mmol/L (3.5-5.0); TOTAL PROTEIN 8.1 g/dL (6.7-8.2)
[2022-04-10] MEDS ORDERED: LORazepam 2 MG/ML VIAL IVP STA (23:07)
[2022-04-10] MEDS ORDERED: FUROSEMIDE 40 MG/4 ML VIAL IVP STA (23:07)
[2022-04-10] MEDS ORDERED: NITROGLYCERIN SL 0.4 MG TABLET SL STA (23:29)
[2022-04-10] MEDS ORDERED: MORPHINE 2 MG/ML CARPUJECT IVP STA (23:29)
[2022-04-10 23:30] LABS: B. PARAPERTUSSIS- RESP PCR PAN NOT DETECTED; B. PERTUSSIS- RESP PCR PANEL NOT DETECTED; C. PNEUMONIAE- RESP PCR PANEL NOT DETECTED; CORONAVIRUS 229E-RESP PCR NOT DETECTED; CORONAVIRUS HKU1-RESP PCR NOT DETECTED; CORONAVIRUS NL63-RESP PCR NOT DETECTED; CORONAVIRUS OC43-RESP PCR NOT DETECTED; HUMAN METAPNEUMOVIRUS NOT DETECTED; INFLUENZA A- RESP PCR PANEL NOT DETECTED; INFLUENZA B - RESP PCR PANEL NOT DETECTED; M. PNEUMONIAE- RESP PCR PANEL NOT DETECTED; PARAINFLUENZA VIRUS 1 NOT DETECTED; PARAINFLUENZA VIRUS 2 NOT DETECTED; PARAINFLUENZA VIRUS 3 NOT DETECTED; PARAINFLUENZA VIRUS 4 NOT DETECTED; RHINOVIRUS/ENTEROVIRUS NOT DETECTED; RSV- RESP PCR PANEL NOT DETECTED; SARS-CoV-2 -RESP PCR PANEL NOT DETECTED
[2022-04-10] MEDS ORDERED: NITROGLYCERIN 2% PASTE TOP STA (23:39)
--- NOTE | 2022-04-10 23:58 | XRAY Report ---
PROCEDURE: Chest 1 View X-Ray INDICATIONS: Chest pain TECHNIQUE: One view of the chest was acquired. COMPARISON: None. FINDINGS: Surgical changes and devices: None. Lungs and pleura: There is bilateral perihilar pulmonary vascular prominence suggestive of pulmonary edema. No pleural effusions or pneumothorax. Mediastinum: Mediastinal contours appear normal. Heart size is normal. Bones and chest wall: No suspicious bony lesions. Overlying soft tissues appear unremarkable. IMPRESSION: 1. Bilateral pulmonary edema. Reviewed by: Emilio Kraft MD on 04/11/2022 12:07 AM [facility] Approved by: Emilio Kraft MD on 04/11/2022 12:07 AM [facility] Station ID: [id number]
[2022-04-11 00:17] LABS: BILIRUBIN,URINE NEGATIVE (NEGATIVE); GLUCOSE, URINE (UA) NEGATIVE (NEGATIVE); KETONES,URINE (UA) NEGATIVE (NEGATIVE); LEUKOCYTE ESTERASE, URINE NEGATIVE (NEGATIVE); NITRITE,URINE NEGATIVE (NEGATIVE); OCCULT BLOOD,URINE NEGATIVE (NEGATIVE); PH,URINE 5.5 PH (5.0-7.5); PROTEIN,URINE 100 mg/dL (NEGATIVE); UROBILINOGEN,URINE 0.2 (NORMAL) E.U./dL (NORMAL)
[2022-04-11 00:21] LABS: ABG BASE EXCESS -8.4 mmol/L (-2.0-3.0); ABG OXYGEN SATURATION 88 % (94-98); ABG PO2 70 mmHg (80-100)
[2022-04-11 00:24] LABS: ABG MODE OF VENTILATION SYNCHRONOUS/TIMES; ABG RESPIRATORY RATE 20 b/min; ALLEN TEST POSITIVE
[2022-04-11 00:26] LABS: BACTERIA,URINE None Seen /HPF (None Seen); CLARITY,URINE CLEAR (CLEAR); MUCUS,URINE Few Strands; RBC,URINE 0-5 /HPF (0-5); SQUAMOUS EPITHELIAL CELL,UR RARE Squamous (<= Few); WBC,URINE 0-3 /HPF (0-3)
[2022-04-11 00:27] LABS: CASTS, URINE 0-2 Hyaline Casts /LPF
[2022-04-11] MEDS ORDERED: KETAMINE 500 MG/10 ML VIAL ONE (00:27)
[2022-04-11] MEDS ORDERED: MIDAZOLAM 2 MG/2 ML VIAL ONE (00:27)
[2022-04-11] MEDS ORDERED: ETOMIDATE 40 MG/20 ML VIAL IVP ONE ×2 (00:27→00:38)
[2022-04-11] MEDS ORDERED: PROPOFOL 1000 MG/100 ML 1,000 MG/100 ML BOTTLE IV ONE (00:27)
[2022-04-11] MEDS ORDERED: PROPOFOL 200 MG/20 ML VIAL IVP ONE (00:28)
[2022-04-11] MEDS ORDERED: ROCURONIUM 50 MG/5 ML VIAL ONE (00:29)
[2022-04-11] MEDS ORDERED: SUCCINYLCHOLINE 200 MG/10 ML VIAL ONE (00:30)
[2022-04-11] MEDS ORDERED: SUCCINYLCHOLINE 200 MG/10 ML VIAL IVP STA (00:39)
[2022-04-11] MEDS: PROPOFOL 1000 MG/100 ML 1,000 MG/100 ML BOTTLE IV STA ×2 (00:42→04:26)
[2022-04-11 00:43] LABS: ABG PCO2 62 mmHg (34-45); ABG PH 7.15 (7.35-7.45)
[2022-04-11] MEDS ORDERED: ROCURONIUM 50 MG/5 ML VIAL IVP ONE (00:43)
[2022-04-11] MEDS ORDERED: ETOMIDATE 40 MG/20 ML VIAL IVP STA (00:52)
[2022-04-11] MEDS ORDERED: IPRATROPIUM/ALBUTEROL 3 ML NEB INH ONE (01:09)
[2022-04-11] MEDS ORDERED: SODIUM CHLORIDE 0.9% 1,000 ML IV STA (01:11)
[2022-04-11] MEDS ORDERED: IPRATROPIUM/ALBUTEROL 3 ML NEB INH STA (01:36)
[2022-04-11] MEDS ORDERED: PIPERACILLIN/TAZOBACTAM 3.375 GM in SODIUM CHLORIDE 0.9% MINIBAG 100 ML IV STA ×2 (01:40→02:15)
--- NOTE | 2022-04-11 01:56 | XRAY Report ---
PROCEDURE: Chest for Line Placement INDICATIONS: post intubation TECHNIQUE: One view of the chest was acquired. COMPARISON: Previous chest x-ray 04/10/2022. FINDINGS: Surgical changes and devices: There is a new endotracheal tube with the tip approximately 9 cm from the elaine. There is a new nasogastric tube extending to the stomach with the tip not well seen on the current study . Lungs and pleura: There are small bilateral pleural effusions with associated compressive atelectasis or consolidation in the lung bases. There is persistent pulmonary edema. No pleural effusions or pne umothorax. Mediastinum: Mediastinal contours appear unchanged. Heart size is normal. Bones and chest wall: No suspicious bony lesions. Overlying soft tissues appear unremarkable. IMPRESSION: 1. New endotracheal tube tip approximately 9 cm from the elaine. Recommend advancement by approximate 4-5 mm. 2. Small bilateral pleural effusions with increased bibasilar compressive atelectasis or consolidatio n. There is persistent pulmonary edema Reviewed by: Emilio Kraft MD on 04/11/2022 1:55 AM PST Approved by: Emilio Kraft MD on 04/11/2022 1:55 AM PST Station ID: [id number]
[2022-04-11] MEDS ORDERED: HEPARIN 5,000 UNIT/ML VIAL ONE (02:06)
[2022-04-11] MEDS ORDERED: ASPIRIN 300 MG SUPP PR STA (02:14)
[2022-04-11 02:47] LABS: ABG BASE EXCESS -8.1 mmol/L (-2.0-3.0); ABG HCO3 18.8 mmol/L (22.0-26.0); ABG OXYGEN SATURATION 88 % (94-98); ABG PCO2 44 mmHg (34-45); ABG PH 7.25 (7.35-7.45); ABG PO2 61 mmHg (80-100); ABG TCO2 20.2 MMOL/L (21.0-29.0); ALLEN TEST POSITIVE
[2022-04-11 02:48] LABS: ABG MODE OF VENTILATION ASSIST/CONTROL; ABG RESPIRATORY RATE 20 b/min
[2022-04-11] MEDS ORDERED: HEPARIN 25000UNITS/500ML (D5W) 25,000 UNIT/500 ML BAG IV SCH (03:00)
--- NOTE | 2022-04-11 04:07 | ED Physician Documentation ---
PD HPI DYSPNEA - Stated complaint Stated Complaint: SOA, CHEST PAIN - Chief complaint Chief Complaint: Cardiac - History obtained from History obtained from: Patient, Family - Additional information Additional information: The patient comes to the emergency department chief complaint of chest pain and dyspnea that just started today. states the patient was at rest when he suddenly began to complain of left-sided chest pain. He became diaphoretic and short of breath and when his took his blood pressure, she found it to be around 280/120. The patient's oxygen saturation was also 88% on room air at that time. states that the patient had a somewhat similar, but milder episode of chest pain and shortness of breath about a month ago and that it resolved on its own. However, since then, he has had occasional milder episodes of left-sided chest pain intermittently. Per these do not seem to be exertionally related. The patient has no known history of coronary artery dise ase. He has a history of insulin-dependent diabetes type 1 for which he uses an insulin pump. He also has stage III chronic kidney disease and is followed by Dr. Mcginnis for this. She does note that Dr. Mcginnis discontinued the patient's hydrochlorothiazide 1 to 2 weeks ago, over concern that it was making his kidneys worse. She states the patient had not specifically complained of shortness of breath until tonight, however. He has a history of hypertension, hyperlipidemia, and smoking, though he has never been diagnosed with COPD. The patient's states that the patient has complained of vaguely feeling "unwell" since finishing a course of antibiotics for an ear infection 1 to 2 months ago. The patient is not able to offer much information, as he is in respiratory distress and very anxious. Review of Systems Unable to obtain: Other (Respiratory distress) PD PAST MEDICAL HISTORY - Past Medical History Past Medical History: Yes Cardiovascular: Hypertension, High cholesterol, Peripheral Vascular Disease Respiratory: None Endocrine/Autoimmune: Type 1 diabetes, HyPOthyroidism GI: None : None HEENT: Macular degeneration Psych: None Musculoskeletal: None Derm: None - Past Surgical History Past Surgical History: Yes Ortho: Carpal Tunnel surgery, Other - Present Medications Home Medications: Ambulatory Orders Medication Instructions Recorded Confirmed Amlodipine Besylate [Norvasc] 2.5 mg PO DAILY 01/18/15 04/10/22 Aspirin [Aspir 81] 81 mg PO DAILY 01/18/15 04/10/22 Atorvastatin [Lipitor] 20 mg PO DAILY 01/18/15 04/10/22 Gabapentin 300 mg PO BID 01/18/15 04/10/22 Insulin Glargine,Hum.rec.anlog 50 units SQ DAILY 01/18/15 04/10/22 [Lantus] Insulin Regular Human [NovoLIN R] 1 unit SQ DAILY PRN 01/18/15 04/10/22 Levothyroxine Sodium [Levoxyl] 200 mcg PO DAILY 01/18/15 04/10/22 Losartan/Hydrochlorothiazide 1 tab ORAL DAILY 10/31/21 04/10/22 [Hyzaar 50-12.5 Tablet] - Allergies Allergies/Adverse Reactions: Allergies Allergy/AdvReac Type Severity Reaction Status Date / Time No Known Drug Allergies Allergy Verified 04/10/22 22:48 - Social History Does the pt smoke?: Yes Smoking Status: Current every day smoker Does the pt drink ETOH?: No Does the pt have substance abuse?: No - Immunizations Immunizations are current?: Yes - POLST Patient has POLST: No PD ED PE NORMAL - Vitals Vital signs reviewed: Yes - General General: Well developed/nourished, Other (Diaphoretic male, appears very anxious, moderate to severe respiratory distress) - HEENT HEENT: Atraumatic, PERRL, EOMI, Moist mucous membranes - Neck Neck: Supple, no meningeal sign - Cardiac Cardiac: No murmur, Strong equal pulses, Other (Tachycardic rate regular rhythm) - Respiratory Respiratory: Other (Tachypneic in the 30s, air moving to depth of lungs but with prominent rales throughout bilateral lung story.) - Abdomen Abdomen: Soft, Non tender, Non distended - Derm Derm: No rash, Other (Cool, diaphoretic, Mild pallor) - Extremities Extremities: No deformity, No edema - Neuro Neuro: Other (The patient is alert and follows commands. Grossly intact.) - Psych Psych: Normal mood, Normal affect Results - Vitals Vitals: Vital Signs - 24 hr 04/10/22 04/10/22 04/10/22 22:20 22:34 22:45 Temperature 36.9 C Heart Rate 117 H 118 H Respiratory 30 H 24 Rate Blood Pressure 148/104 H 148/99 H Blood Pressure 148/104 H [Right] O2 Saturation 81 L 98 If not protocol : Oxygen Flow, liters/minute 04/10/22 04/10/22 04/10/22 22:56 23:22 23:25 Temperature Heart Rate 122 H 129 H 123 H Respiratory 17 30 H 29 H Rate Blood Pressure 148/99 H 187/105 H 160/103 H Blood Pressure [Right] O2 Saturation 97 93 84 L If not protocol 15 15 100 : Oxygen Flow, liters/minute 04/10/22 04/10/22 04/10/22 23:40 23:45 23:51 Temperature 37.2 C Heart Rate 117 H 115 H 114 H Respiratory 26 H 29 H Rate Blood Pressure 169/96 H 162/92 H Blood Pressure [Right] O2 Saturation 93 89 L If not protocol 100 : Oxygen Flow, liters/minute 04/11/22 04/11/22 04/11/22 00:07 00:12 00:21 Temperature 37.1 C 36.7 C Heart Rate 113 H 111 H 110 H Respiratory 30 H 28 H 30 H Rate Blood Pressure 163/97 H 161/93 H 161/93 H Blood Pressure [Right] O2 Saturation 91 L 92 94 If not protocol 100 : Oxygen Flow, liters/minute 04/11/22 04/11/22 04/11/22 00:37 00:40 00:47 Temperature Heart Rate 108 H 110 H 103 H Respiratory 29 H 29 H 13 Rate Blood Pressure 143/87 H 141/95 H 179/97 H Blood Pressure [Right] O2 Saturation 95 98 91 L If not protocol : Oxygen Flow, liters/minute 04/11/22 04/11/22 04/11/22 00:52 00:59 01:02 Temperature Heart Rate 111 H 97 94 Respiratory 13 22 22 Rate Blood Pressure 142/82 H 114/66 106/74 Blood Pressure [Right] O2 Saturation 90 L 20 L 85 L If not protocol : Oxygen Flow, liters/minute 04/11/22 04/11/22 04/11/22 01:04 01:10 01:13 Temperature Heart Rate 97 96 98 Respiratory 21 22 21 Rate Blood Pressure 99/72 99/72 114/71 Blood Pressure [Right] O2 Saturation 85 L 92 97 If not protocol 100 : Oxygen Flow, liters/minute 04/11/22 04/11/22 04/11/22 01:20 01:21 01:28 Temperature 34.1 C L Heart Rate 95 99 95 Respiratory 20 16 23 Rate Blood Pressure 111/73 122/76 Blood Pressure [Right] O2 Saturation 99 99 If not protocol 100 : Oxygen Flow, liters/minute 04/11/22 04/11/22 04/11/22 01:34 01:41 01:50 Temperature 35.1 C L 35.7 C L 36.0 C L Heart Rate 96 92 95 Respiratory 24 21 22 Rate Blood Pressure 116/77 108/93 H 129/78 Blood Pressure [Right] O2 Saturation 99 98 97 If not protocol 100 100 100 : Oxygen Flow, liters/minute 04/11/22 04/11/22 04/11/22 02:09 02:18 02:34 Temperature 36.1 C L 36.1 C L 36.1 C L Heart Rate 92 89 91 Respiratory 22 25 H 29 H Rate Blood Pressure 106/68 117/68 97/68 Blood Pressure [Right] O2 Saturation 96 96 98 If not protocol 100 100 100 : Oxygen Flow, liters/minute 04/11/22 04/11/22 04/11/22 02:40 02:50 03:00 Temperature 36.1 C L 36.1 C L 36.1 C L Heart Rate 88 89 88 Respiratory 23 18 22 Rate Blood Pressure 97/65 106/68 107/74 Blood Pressure [Right] O2 Saturation 98 99 100 If not protocol 100 100 100 : Oxygen Flow, liters/minute 04/11/22 04/11/22 04/11/22 03:03 03:10 03:27 Temperature 87 C H 36.0 C L 36.0 C L Heart Rate 87 86 85 Respiratory 21 21 25 H Rate Blood Pressure 109/72 116/75 111/77 Blood Pressure [Right] O2 Saturation 100 100 100 If not protocol 100 100 100 : Oxygen Flow, liters/minute 04/11/22 03:52 Temperature 36.0 C L Heart Rate 84 Respiratory 20 Rate Blood Pressure 108/73 Blood Pressure [Right] O2 Saturation 100 If not protocol 100 : Oxygen Flow, liters/minute Oxygen O2 Source Room air Oxygen Flow Rate 15 - EKG (time done) 2231 Rate: Rate (enter#) (115) Rhythm: Sinus tachycardia [place]: Normal Intervals: Normal NE QRS: Normal Ischemia: Non specific changes, Other (Heavy artifact noted, due to patient's work of breathing; no obvious ST changes noted) Compare to prior EKG: Old EKG unavailable Computer interpretation: Agree with computer 0 129 Rate: Rate (enter#) (96) Rhythm: NSR [place]: Normal Intervals: Normal NE QRS: Normal Ischemia: Normal ST segments, T wave inversion (V5/V6; leads II, 3, aVF) Compare to prior EKG: Other (Appears similar to EKG performed earlier this evening, but earlier EKG was of much lower quality, due to artifact.) Computer interpretation: Agree with computer - Labs Labs: Laboratory Tests 04/10/22 04/10/22 04/10/22 22:30 22:30 22:30 WBC 8.6 RBC 3.95 L Hgb 11.3 L Hct 35.0 L MCV 88.6 MCH 28.6 MCHC 32.3 RDW 13.2 Plt Count 348 MPV 10.5 Neut # (Auto) 5.5 Lymph # (Auto) 1.8 [place] # (Auto) 0.6 Eos # (Auto) 0.5 Baso # (Auto) 0.1 Absolute Nucleated RBC 0.00 Nucleated RBC % 0.0 Bld Gas Analysis Time Sample Site ABG pH ABG pCO2 ABG pO2 ABG HCO3 ABG Total CO2 ABG O2 Saturation ABG Base Excess Pio Test Respiration Rate O2 Delivery Device Vent Mode FiO2 Tidal Volume PEEP Pressure Support Vent EPAP IPAP Sodium 139 Potassium 4.8 Chloride 106 Carbon Dioxide 22 Anion Gap 11.0 BUN 28 H Creatinine 1.9 H Estimated GFR (MDRD) 36 L Glucose 159 H POC Whole Bld Glucose Calcium 8.6 Total Bilirubin 0.6 AST 26 ALT 20 Alkaline Phosphatase 36 L Troponin I High Sens 105.5 H* B-Natriuretic Peptide Total Protein 8.1 Albumin 3.8 Globulin 4.3 H Albumin/Globulin Ratio 0.9 L Lipase 28 Urine Color Urine Clarity Urine pH Ur Specific [place] Urine Protein Urine Glucose (UA) Urine Ketones Urine Occult Blood Urine Nitrite Urine Bilirubin Urine Urobilinogen Ur Leukocyte Esterase Urine RBC Urine WBC Ur Squamous Epith Cells Urine Bacteria Urine Casts Urine Mucus Ur Microscopic Review Urine Culture Comments Nasal Adenovirus (PCR) Nasal B. parapertussis DNA (PCR) Nasal Coronavir 229E PCR Nasal Coronavir HKU1 PCR Nasal Coronavir NL63 PCR Nasal Coronavir OC43 PCR Nasal Enterovir/Rhinovir PCR Nasal Influenza B PCR Nasal Influenza A PCR Nasal Parainfluen 1 PCR Nasal Parainfluen 2 PCR Nasal Parainfluen 3 PCR Nasal Parainfluen 4 PCR Nasal RSV (PCR) Nasal B.pertussis DNA PCR Nasal C.pneumoniae (PCR) Paco Human Metapneumo PCR Nasal M.pneumoniae (PCR) Nasal SARS-CoV-2 (PCR) 04/10/22 04/10/22 04/10/22 22:30 22:30 22:40 WBC RBC Hgb Hct MCV MCH MCHC RDW Plt Count MPV Neut # (Auto) Lymph # (Auto) [place] # (Auto) Eos # (Auto) Baso # (Auto) Absolute Nucleated RBC Nucleated RBC % Bld Gas Analysis Time Sample Site ABG pH ABG pCO2 ABG pO2 ABG HCO3 ABG Total CO2 ABG O2 Saturation ABG Base Excess [place]io Test Respiration Rate O2 Delivery Device Vent Mode FiO2 Tidal Volume PEEP Pressure Support Vent EPAP IPAP Sodium Potassium Chloride Carbon Dioxide Anion Gap BUN Creatinine Estimated GFR (MDRD) Glucose POC Whole Bld Glucose 164 H Calcium Total Bilirubin AST ALT Alkaline Phosphatase Troponin I High Sens B-Natriuretic Peptide 392 H Total Protein Albumin Globulin Albumin/Globulin Ratio Lipase Urine Color Urine Clarity Urine pH Ur Specific [place] Urine Protein Urine Glucose (UA) Urine Ketones Urine Occult Blood Urine Nitrite Urine Bilirubin Urine Urobilinogen Ur Leukocyte Esterase Urine RBC Urine WBC Ur Squamous Epith Cells Urine Bacteria Urine Casts Urine Mucus Ur Microscopic Review Urine Culture Comments Nasal Adenovirus (PCR) NOT DETECTED Nasal B. parapertussis DNA (PCR) NOT DETECTED Nasal Coronavir 229E PCR NOT DETECTED Nasal Coronavir HKU1 PCR NOT DETECTED Nasal Coronavir NL63 PCR NOT DETECTED Nasal Coronavir OC43 PCR NOT DETECTED Nasal Enterovir/Rhinovir PCR NOT DETECTED Nasal Influenza B PCR NOT DETECTED Nasal Influenza A PCR NOT DETECTED Nasal Parainfluen 1 PCR NOT DETECTED Nasal Parainfluen 2 PCR NOT DETECTED Nasal Parainfluen 3 PCR NOT DETECTED Nasal Parainfluen 4 PCR NOT DETECTED Nasal RSV (PCR) NOT DETECTED Nasal B.pertussis DNA PCR NOT DETECTED Nasal C.pneumoniae (PCR) NOT DETECTED Paco Human Metapneumo PCR NOT DETECTED Nasal M.pneumoniae (PCR) NOT DETECTED Nasal SARS-CoV-2 (PCR) NOT DETECTED 04/11/22 04/11/22 04/11/22 00:02 00:10 00:49 WBC RBC Hgb Hct MCV MCH MCHC RDW Plt Count MPV Neut # (Auto) Lymph # (Auto) [place] # (Auto) Eos # (Auto) Baso # (Auto) Absolute Nucleated RBC Nucleated RBC % Bld Gas Analysis Time 0018 Sample Site RIGHT RADIAL ABG pH 7.15 L* ABG pCO2 62 H* ABG pO2 70 L ABG HCO3 21.0 L ABG Total CO2 23.0 ABG O2 Saturation 88 L ABG Base Excess -8.4 L Pio Test POSITIVE Respiration Rate 20 O2 Delivery Device BiPAP Vent Mode SYNCHRONOUS/TIMES FiO2 100.00 Tidal Volume PEEP Pressure Support Vent 7 EPAP 7 IPAP 14 Sodium Potassium Chloride Carbon Dioxide Anion Gap BUN Creatinine Estimated GFR (MDRD) Glucose POC Whole Bld Glucose Calcium Total Bilirubin AST ALT Alkaline Phosphatase Troponin I High Sens 160.6 H* B-Natriuretic Peptide Total Protein Albumin Globulin Albumin/Globulin Ratio Lipase Urine Color YELLOW Urine Clarity CLEAR Urine pH 5.5 Ur Specific [place] 1.025 Urine Protein 100 H Urine Glucose (UA) NEGATIVE Urine Ketones NEGATIVE Urine Occult Blood NEGATIVE Urine Nitrite NEGATIVE Urine Bilirubin NEGATIVE Urine Urobilinogen 0.2 (NORMAL) Ur Leukocyte Esterase NEGATIVE Urine RBC 0-5 Urine WBC 0-3 Ur Squamous Epith Cells RARE Squamous Urine Bacteria None Seen Urine Casts 0-2 Hyaline Casts Urine Mucus Few Strands Ur Microscopic Review INDICATED Urine Culture Comments NOT INDICATED Nasal Adenovirus (PCR) Nasal B. parapertussis DNA (PCR) Nasal Coronavir 229E PCR Nasal Coronavir HKU1 PCR Nasal Coronavir NL63 PCR Nasal Coronavir OC43 PCR Nasal Enterovir/Rhinovir PCR Nasal Influenza B PCR Nasal Influenza A PCR Nasal Parainfluen 1 PCR Nasal Parainfluen 2 PCR Nasal Parainfluen 3 PCR Nasal Parainfluen 4 PCR Nasal RSV (PCR) Nasal B.pertussis DNA PCR Nasal C.pneumoniae (PCR) Paco Human Metapneumo PCR Nasal M.pneumoniae (PCR) Nasal SARS-CoV-2 (PCR) 04/11/22 02:38 WBC RBC Hgb Hct MCV MCH MCHC RDW Plt Count MPV Neut # (Auto) Lymph # (Auto) [place] # (Auto) Eos # (Auto) Baso # (Auto) Absolute Nucleated RBC Nucleated RBC % Bld Gas Analysis Time 0245 Sample Site LEFT RADIAL ABG pH 7.25 L ABG pCO2 44 ABG pO2 61 L ABG HCO3 18.8 L ABG Total CO2 20.2 L ABG O2 Saturation 88 L ABG Base Excess -8.1 L Pio Test POSITIVE Respiration Rate 20 O2 Delivery Device VENTILATOR Vent Mode ASSIST/CONTROL FiO2 70.00 Tidal Volume 550 PEEP 5 Pressure Support Vent EPAP IPAP Sodium Potassium Chloride Carbon Dioxide Anion Gap BUN Creatinine Estimated GFR (MDRD) Glucose POC Whole Bld Glucose Calcium Total Bilirubin AST ALT Alkaline Phosphatase Troponin I High Sens B-Natriuretic Peptide Total Protein Albumin Globulin Albumin/Globulin Ratio Lipase Urine Color Urine Clarity Urine pH Ur Specific [place] Urine Protein Urine Glucose (UA) Urine Ketones Urine Occult Blood Urine Nitrite Urine Bilirubin Urine Urobilinogen Ur Leukocyte Esterase Urine RBC Urine WBC Ur Squamous Epith Cells Urine Bacteria Urine Casts Urine Mucus Ur Microscopic Review Urine Culture Comments Nasal Adenovirus (PCR) Nasal B. parapertussis DNA (PCR) Nasal Coronavir 229E PCR Nasal Coronavir HKU1 PCR Nasal Coronavir NL63 PCR Nasal Coronavir OC43 PCR Nasal Enterovir/Rhinovir PCR Nasal Influenza B PCR Nasal Influenza A PCR Nasal Parainfluen 1 PCR Nasal Parainfluen 2 PCR Nasal Parainfluen 3 PCR Nasal Parainfluen 4 PCR Nasal RSV (PCR) Nasal B.pertussis DNA PCR Nasal C.pneumoniae (PCR) Paco Human Metapneumo PCR Nasal M.pneumoniae (PCR) Nasal SARS-CoV-2 (PCR) - Rads (name of study) Chest x-ray Radiology: Final report received, See rad report (Pulmonary edema, no cardiomegaly) Chest x-ray #2 Radiology: Final report received, See rad report (ET tube in place about 9 cm above elaine, could advance up to 5 cm; persistent pulmonary edema with small bilateral pleural effusions.) Chest x-ray #3 Radiology: Final report received, See rad report (Right subclavian central line now in place; all tubes/lines in appropriate placement including ET tube, OG tube, and central line; persistent pulmonary edema; no pneumothorax) Procedures - Intubation - Major Provider: Emergency physician Medications: Etomidate, Succinylcholine, Rocuronium Blade: Agustin Tube: Size-enter number (8.0), Cuffed, Marked at teeth-enter cm Route: Oral Confirmation: Direct visualization, Bilateral breath sounds, No abdominal breath sound, End tidal CO2, Pulse ox, Chest xray Complications: No compications - Central Line - Major Central Line Preparation: Unable to obtain consent (Precluded, secondary to critical condition of patient), Sterile prep and drape Central line location: Right Subclavian Central line type: Triple lumen Central line aftercare: Chlorhexidine disc placed, Secured, Placement confirmed, No pneumothorax, No complications, Pt tolerated well PD Medical Decision Making - ED course Complexity details: reviewed old records, reviewed results, re-evaluated patient, considered differential, d/w patient, d/w family, d/w marine consultant (Dr. Olsen, trumpet player [facility]) ED course: The patient was evaluated by myself shortly after arrival in the emergency department. He was quite dyspneic and was found to have oxygen saturations in the 80s, and had been placed already on a nonrebreather mask by nursing staff. The patient had immediately had a chest x-ray done which showed pulmonary edema bilaterally, and I did order Lasix 80 mg IV. The patient was extremely anxious, even though on a nonrebreather mask, his oxygen saturation was initially quite good. He was given a small dose of Ativan IV which did help his anxiety yesica ewhat, but did cause him to become a little drowsy. He was modestly hypertensive upon arrival in the emergency department, with systolics ranging from the 140s to 160s and diastolics running in the low 100s. I had ordered sublingual nitroglycerin for the patient; however, he was beginning to grow rapidly worse, with oxygen saturations In the 80s despite 100% oxygen. He was diaphoretic and with He isAltered level of consciousness, and I did be placed on BiPAP. Respiratory therapist did come to do this. The patient was starting to put out some urine and a Moreno catheter was placed. A 2 inch strip of nitroglycerin paste was placed on the patient's chest wall, as he was not going to be able to take the sublingual after all. His initial troponin was elevated at 105 Upon my review. His initial EKG had been heavy with artifact but did not show an obvious STEMI. The patient initially seemed to be doing slightly better on BiPAP, with some improvement in his saturations, though his resp iratory rate remained elevated in the 30s. The patient was a little more communicative, but still heavily drowsy. He had put out at this point about 300 cc of urine. We did obtain an ABG, and this showed acidosis at a pH of 7.148. The patient's PCO2 was elevated at 62.1 and his PO2, despite 100% FiO2, was low at 69.9. At this point, though the patient's apparent oxygen saturation on the monitor was in the mid to upper 90s, I felt that BiPAP was not going to be sufficient for this patient and so I spoke with his , who is a nurse. I informed her that it would be best if we intubated the patient and took over his respiratory control for him. She was agreeable. I did explain this to the patient as best I could, and his state. The patient was beginning to worsen again, and so intubation was undertaken. The patient did put out copious amounts of frothy secretions into the tube, some of which were blood-tinged. The patient was deep suctioned multiple times to try to clear this. Initially, there was minimal improvement, even with an initial PEEP of 7. The patient had been placed on a propofol drip, as well as given an extra dose of etomidate, but was somewhat difficult to sedate. We did continue to titrate up on his propofol and initially, the PEEP, as the patient's oxygen saturation was worsening, despite intubation and attempts to diurese. The patient's blood pressure had dropped quite a bit between the nitroglycerin, propofol, and PEEP, and was now in the low 100s systolic. He was intermittently agitated, so I did remove the nitroglycerin paste so that we could increase the patient's sedation without compromising his hemodynamic status. This did ultimately begin to help, as did he multiple bouts of deep suctioning. I did also order a DuoNeb, given that this patient has a longstanding history of smoking and most likely has some degree of undiagnosed COPD, which could be contributing. The patient also had sediments and other soft debris in his respiratory fluid, and I was concerned for possible aspiration. As such, the patient was started on Zosyn. I had placed a central line, and given the patient's initially elevated troponin, as well as a repeat that was somewhat higher at 169, I felt the patient should be placed on a heparin drip. I did not put him on a beta-erick, secondary to the heart failure. The patient's repeat ABG after intubation was shown to be improving, with a normalized PCO2 and a pH that had improved by 0.1. The patient's PO2 was still quite a bit lower than expected, but the patient's oxygen saturations were mid to upper 90s on an FiO2 of 80. We decided at this point to leave the vent settings as they were, as we have been able to get the patient's PEEP back down to 5 and he was finally resting comfortably with his propofol titrated up. His blood pressure was normal. We were notified by [facility] that they could take the patient in [place]. I spoke with Dr. Olsen, who was the trumpet player on-call, and he did agree to accept the patient. At his request, a rectal aspirin dose was given. I have informed the patient's of the plan and she is very much in agreement. The patient has been stable at the time of this dictation for the last 90 minutes, and due to weather, will be transported via ground, rather than airlift, as the helicopters are grounded. - Critical Care Time(min): 120 Comments: Critical care time was necessary, due to high likelihood of imminent and life- threatening decline, secondary to hypertensive emergency, flash pulmonary edema, respiratory failure, HI and altered mental status. Time Includes: Direct patient care, Review records, Reassess patient, Document care, Coordinate care, Medical consult, Family consult for tx dec, See progress note Data interpretation: Labs, Pulse ox, ABG, CXR, Prior EKG, Cardiac output, See progress note Procedures included in critical care time: Ventilator mgmt, See progress note Procedures excluded from critical care time: Central IV, Intubation, See progress note Departure - Departure Disposition: 02 Transfer Acute Care Hosp Clinical Impression: Non-ST elevation HI (NSTEMI), Hypertensive emergency Pulmonary edema Qualifiers: Chronicity: acute Qualified Code(s): J81.0 - Acute pulmonary edema Respiratory failure Qualifiers: Chronicity: acute Respiratory failure complication: hypoxia and hypercapnia Qualified Code(s): J96.01 - Acute respiratory failure with hypoxia; J96.02 - Acute respiratory failure with hypercapnia; J96.02 - Acute respiratory failure with hypercapnia Condition: Critical
[2022-04-11] MEDS ORDERED: PROPOFOL 1000 MG/100 ML 1,000 MG/100 ML BOTTLE IV STA (04:21)
[2022-04-11 04:35] VITALS: BP 115/81
--- NOTE | 2022-04-11 08:04 | XRAY Report ---
PROCEDURE: Chest for Line Placement INDICATIONS: s/p central line placement TECHNIQUE: One view of the chest was acquired. COMPARISON: 04/10/2022 at 04/11/2022. FINDINGS: Surgical changes and devices: ET tube tip is approximately 4.5 cm above the elaine. Right internal j ugular central venous catheter tip is in SVC. Enteric tube tip is below the left hemidiaphragm and is in the expected location of proximal stomach lumen. Lungs and pleura: Airspace opacity in bilateral lower lung story are again seen more prominent on t he right side. No significant pleural effusion. No pneumothorax. Mediastinum: Mediastinal contours appear normal. Heart size is enlarged. Bones and chest wall: No suspicious bony lesions. Overlying soft tissues appear unremarkable. IMPRESSION: Right-sided central venous catheter tip is in SVC. ET tube and enteric tube positions as above. Persi stent bilateral lower lobe airspace opacities suggestive of bilateral lower lobe infiltrates more pro minent on the right side. No pleural effusion or pneumothorax. Reviewed by: Mayco Earl MD on 04/11/2022 8:03 AM PST Approved by: Mayco Earl MD on 04/11/2022 8:03 AM PST Station ID: [id number]
== END 2022-04-11 04:53 | disposition short-term general hospital (02) ==
LOC: ED 22:19
DX: I21.4 Non-ST elevation (NSTEMI) myocardial infarction (principal); I16.1 Hypertensive emergency; J96.02 Acute respiratory failure with hypercapnia; J96.01 Acute respiratory failure with hypoxia; F41.9 Anxiety disorder, unspecified; I95.2 Hypotension due to drugs; T46.3X5A Adverse effect of coronary vasodilators, initial encounter; Y92.538 Other ambulatory health services establishments as the place of occurrence of the external cause; F17.200 Nicotine dependence, unspecified, uncomplicated; Z20.822 Contact with and (suspected) exposure to COVID-19
CPT/HCPCS: 31500; 36415; 36556; 36600; 71045; 80053; 81001; 82803; 83690; 83880; 84484; 85025; 87633; 93005; 94640; 94660; 96361; 96365; 96366; 96368; 96375; 96376; 99291; 99292; A9270; J0330; J2060; 81003; 87086; 94770

== ENCOUNTER 2022-05-29 07:07 | Outpatient (CLI) | payer OTHER ==
[2022-05-29 12:38] LABS: CALCIUM 9.2 mg/dL (8.5-10.3); CREATININE 1.7 mg/dL (0.6-1.2); PHOSPHORUS 4.6 mg/dL (2.5-4.6); POTASSIUM 4.8 mmol/L (3.5-5.0)
[2022-05-29 13:35] LABS: CREATININE,URINE 155.9 mg/dL; PROTEIN/CREATININE RATIO,URINE 0.9 (<=0.2)
== END 2022-05-29 07:08 | disposition home or self-care (01) ==
LOC: LAB.N 07:07
PROVIDERS: ATTEND Internal Medicine Nephrology
DX: N05.9 Unspecified nephritic syndrome with unspecified morphologic changes (principal); E83.30 Disorder of phosphorus metabolism, unspecified; N25.81 Secondary hyperparathyroidism of renal origin; R80.9 Proteinuria, unspecified; D64.9 Anemia, unspecified
CPT/HCPCS: 36415; 80048; 82570; 82607; 83970; 84100; 84156

== ENCOUNTER 2022-06-13 14:31 | Outpatient (CLI) | payer OTHER ==
--- NOTE | 2022-06-13 14:22 | SLEEP CARE CONSULTATION ---
Information from patient questionnaire entered by Peg Ann. I have reviewed and concur with the information entered by ePg Ann. This document represents the service I personally performed and the decisions made by me, Joy Moon ARNP. History of Present Illness Service Date and Time: 06/13/2022 1400 Previous diagnosis: Moderate, Obstructive Sleep Apnea-Hypopnea Syndrome AHI: 18.7 Reason for follow up: annual (LAST SEEN 03/2021) Equipment type: CPAP (RESMED Airsense 10, s/u 10/2019) Equipment obtained from: [facility] (needs new prescription) Mask style: Full face Mask brand: Resmed (Airfit F20, size large) Backup mask available: No (needs replacement supplies) Last cushion change: 1 month Prior sleep studies: Yes Year and Where: 04/2019 [facility] Type of Sleep Study: Home sleep study HPI additional information: ESPERANZA BALDERAS was diagnosed to have moderate, AHI 18.7, obstructive sleep apnea-hypopnea syndrome and returns via video telehealth today for CPAP therapy annual follow-up. Sleep Study - Results Type of Sleep Study: Home sleep study Prior sleep studies: Yes Year and Where: 04/2019 [facility] CPAP Compliance Data - Data Reviewed with Patient Average duration of nightly device use: 6 hours 6 minutes Compliance rate %: 62 (121/180 days used; 70% in last 30 days) Current pressure setting (cmH2O): 10-15 Average residual AHI: 0.6 Central apnea: 0.0 Obstructive apnea: 0.1 Subjective Missed days of use due to: reports: illness (heart attack and surgery) Patient concerns: reports: dry mouth, nose, throat (dry mouth), other (using a lot of water). denies: aerophagia, mask discomfort, air blowing in eyes, mask leak noise, condensation in mask/hose, nasal congestion, epistaxis Observed to snore while using device: No Current pressure setting perceived as: comfortable On therapy, patient: reports: sleeping better, awakening more refreshed, being more awake and alert during the day, more rested overall. denies: drowsiness while driving Initial Morrill Sleepiness Scale score: 2 Current Morrill Sleepiness Scale score: 11 (06/13/22) Allergies and Home Medications Known drug allergies: No Drug allergies reviewed: Yes Home medication list reviewed: Yes (see updated list in EMR) Review of Systems Review of systems same as previous: No (Triple bypass surgery in April,Apr 10 had DE) Physical Exam Vital signs obtained and entered by: PEG Thomas MA Blood Pressure: 122/54 (PER PT) Height: 6 ft (PER PT) Weight: 230 lb (PT PT) Body Mass Index: 31.1 BMI Classification: Obese Impression and Plan 1. Obstructive Sleep Apnea-Hypopnea Syndrome, moderate, with good treatment compliance in last 30 days and good apnea control. On CPAP therapy, the patient has better sleep quality and is more rested overall. Patient states he needs supplies but his DME [facility] needs an updated prescription. I will complete a prescription for supplies and have it faxed to his DME. His compliance did suffer earlier in the year because he had a heart attack and ended up with a triple bypass operation. He has brought his compliance to 70% in the last 30 days. He is getting some oral dryness. He is going through his water chamber daily and states it is set on 5. He may have his mouth come open when sleeping causing oral venting and ending up with oral dryness. I advised trying a chinstrap which will be included on his updated prescription. Patient is encouraged to use CPAP with all sleep. Patient's apnea severity and rationale for treatment to reduce apnea, improve sleep quality and reduce cardiovascular and cerebrovascular events was reviewed. I also reviewed the benefit of consistent device use of CPAP for hypertension, cardiac disease (DE) and diabetes. 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 2. Obesity, unspecified. Currently patients BMI is 31.1. Obesity increases the risk of apnea, CPAP pressure requirements and overall health risks especially cardiovascular and diabetes. Thus patient is advised to lose weight. * Continue auto CPAP pressure at 10-15 cmH2O * Update supplies * Notify me if snoring with mask or feeling that the pressure is too much or too little * Attempt to lose weight * Call this office if any problems using CPAP * Return for follow up in 1 year, or sooner if concerns arise Counseling Topics: Weight loss health impact Visit Type: Telehealth Video Video Type: Doximity Patient Location: Home Other Participants: Spouse/Significant Other Location of Provider: Office Patient agrees and consents to this telehealth visit type: Yes Patient agrees to have their insurance billed: Yes Time Spent with Patient (minutes): 21 Provider Statement: I spent 100% of the Telehealth Video Call with the patient with greater than 50% spent counseling the patient and coordination of care.
[2022-06-13 14:23] VITALS: BP 122/54
== END 2022-06-13 14:32 | disposition home or self-care (01) ==
LOC: SC 14:31
PROVIDERS: ATTEND Nurse Practitioner Family
DX: G47.33 Obstructive sleep apnea (adult) (pediatric) (principal); E66.9 Obesity, unspecified; Z68.31 Body mass index [BMI] 31.0-31.9, adult

== ENCOUNTER 2022-06-16 10:37 | Outpatient (CLI) | payer OTHER ==
--- NOTE | 2022-06-16 13:45 | XRAY Report ---
PROCEDURE: Chest 2 View X-Ray INDICATIONS: CAD TECHNIQUE: 2 views of the chest were acquired. COMPARISON: None. FINDINGS: Surgical changes and devices: None. Lungs and pleura: No pleural effusions or pneumothorax. Nodular opacity of the right upper lung zone . Mediastinum: Mediastinal contours are normal. Heart size is enlarged. Bones and chest wall: No suspicious bony abnormalities. Soft tissues appear unremarkable. IMPRESSION: Nodular opacity of the right upper lung zone could represent degenerative changes versus nodule. Carlos mmend CT for confirmation. Reviewed by: Saud Armstrong on 06/16/2022 12:20 PM PDT Approved by: Saud Armstrong on 06/16/2022 12:20 PM PDT Station ID: [id number]
== END 2022-06-16 10:38 | disposition home or self-care (01) ==
LOC: DI 10:37
PROVIDERS: ATTEND Physician Assistant Medical
DX: I25.10 Atherosclerotic heart disease of native coronary artery without angina pectoris (principal); R91.8 Other nonspecific abnormal finding of lung field

== ENCOUNTER 2022-07-19 09:46 | Outpatient (CLI) | payer OTHER ==
[2022-07-19] MEDS ORDERED: iohexoL-300 100 ML VIAL ONE (10:04)
[2022-07-19 10:27] LABS: CREATININE 1.9 mg/dL (0.6-1.2)
[2022-07-19] MEDS: iohexoL-300 100 ML VIAL IVP ONE (10:53)
--- NOTE | 2022-07-19 10:59 | CT Report ---
PROCEDURE: CHEST W INDICATIONS: ABN CHEST XR CONTRAST: 100ML OMNI 300 TECHNIQUE: After the administration of intravenous contrast, 1 mm axial images were acquired from the pulmonary apices through the posterior costophrenic angles. Axial 5 mm soft tissue kernel reconstructions were performed as well as 8 mm axial MIP and coronal and sagittal 5 mm reformations. For radiation dose reduction, the following was used: automated exposure control, adjustment of mA and/or kV according to patient size. COMPARISON: Chest x-ray 06/16/2022. CT chest 07/06/2021, 04/13/2020 FINDINGS: Image quality: Excellent. Lungs and pleura: No consolidation. No pleural effusions. No pneumothorax. Corresponding to area of abnormality in the right upper lobe on chest x-ray is a cluster of small pneumatoceles which have bee n stable over prior exams. 5 mm nodule along the right major fissure on series 4 image 163 is unchang ed since 2020. Mediastinum: Heart size is normal. No pericardial effusions. No mediastinal adenopathy by size criter ia. No large vessel abnormality. Chest wall and lower neck: Thyroid is unremarkable. No axillary or supraclavicular adenopathy by size . Bones: No aggressive osseous abnormality. Upper Abdomen: Unremarkable. IMPRESSION: Small unchanged clustered pneumatoceles in the anterior right upper lobe corresponding to area of abn ormality on chest x-ray. Is been stable since 2020. Unchanged 5 mm right fissural nodule also stable since 2020 and likely benign. Reviewed by: Anay Kenny MD on 07/19/2022 10:58 AM PDT Approved by: Anay Kenny MD on 07/19/2022 10:58 AM PDT Station ID: [id number]
== END 2022-07-19 09:47 | disposition home or self-care (01) ==
LOC: LAB 09:46
PROVIDERS: ATTEND Physician Assistant Medical
DX: J98.4 Other disorders of lung (principal); R91.1 Solitary pulmonary nodule
CPT/HCPCS: 36415; 71260; 82565; Q9967

== ENCOUNTER 2022-07-25 07:08 | Outpatient (CLI) | payer OTHER ==
[2022-07-25 11:42] LABS: BASOPHILS # (AUTO) 0.1 10^3/uL (0.0-0.1); BASOPHILS % (AUTO) 0.9 %; EOSINOPHILS # (AUTO) 0.4 10^3/uL (0.0-0.7); EOSINOPHILS % (AUTO) 6.5 %; HCT - HEMATOCRIT 34.4 % (42.0-52.0); HGB - HEMOGLOBIN 11.2 g/dL (14.0-18.0); LYMPHOCYTES # (AUTO) 1.3 10^3/uL (1.5-3.5); LYMPHOCYTES % (AUTO) 20.5 %; MEAN CORPUSCULAR HEMOGLOBIN 28.4 pg (27.0-31.0); MEAN CORPUSCULAR HGB CONC 32.6 g/dL (32.0-36.0); MEAN CORPUSCULAR VOLUME 87.1 fL (80.0-94.0); MONOCYTES # (AUTO) 0.6 10^3/uL (0.0-1.0); MONOCYTES % (AUTO) 9.6 %; NEUTROPHILS % (AUTO) 62.3 %; PLT - PLATELET COUNT 197 10^3/uL (130-450); RED BLOOD COUNT 3.95 10^6/uL (4.70-6.10); RED CELL DISTRIBUTION WIDTH 13.2 % (12.0-15.0); WHITE BLOOD COUNT 6.5 x10^3/uL (4.8-10.8)
[2022-07-25 12:08] LABS: % IRON SATURATION 29 % (20-50); BUN - BLOOD UREA NITROGEN 30 mg/dL (6-20); CALCIUM 8.7 mg/dL (8.5-10.3); CARBON DIOXIDE - CO2 27 mmol/L (21-32); CHLORIDE 107 mmol/L (101-111); CHOL/HDL RATIO 3.7 (<5.0); CHOLESTEROL 145 mg/dL; CREATININE 1.8 mg/dL (0.6-1.2); GFR - MDRD 39 (>89); GLUCOSE 107 mg/dL (70-100); HDL CHOLESTEROL 39 mg/dL; IRON 79 ug/dL (45-182); LDL CHOLESTEROL,CALCULATED 91 mg/dL; LDL/HDL RATIO 2.3 (<3.6); POTASSIUM 4.1 mmol/L (3.5-5.0); SODIUM 139 mmol/L (135-145); TOTAL IRON BINDING CAPACITY 272 ug/dL (250-450); TRANSFERRIN 194 mg/dL (180-329); TRIGLYCERIDES 73 mg/dL; VLDL CHOLESTEROL 15 mg/dL
[2022-07-25 12:17] LABS: FERRITIN 73.6 ng/mL (23.9-336.2)
== END 2022-07-25 07:09 | disposition home or self-care (01) ==
LOC: LAB.N 07:08
PROVIDERS: ATTEND Internal Medicine Nephrology
DX: E10.69 Type 1 diabetes mellitus with other specified complication (principal); N05.9 Unspecified nephritic syndrome with unspecified morphologic changes; D70.9 Neutropenia, unspecified; D50.0 Iron deficiency anemia secondary to blood loss (chronic); D63.1 Anemia in chronic kidney disease
CPT/HCPCS: 36415; 80048; 80061; 82728; 82746; 83540; 83721; 84466; 85025

== ENCOUNTER 2022-09-20 09:05 | Outpatient (CLI) | payer OTHER ==
[2022-09-20 19:18] LABS: CALCIUM 8.5 mg/dL (8.5-10.3); CREATININE 1.8 mg/dL (0.6-1.2); POTASSIUM 4.7 mmol/L (3.5-5.0)
== END 2022-09-20 09:06 | disposition home or self-care (01) ==
LOC: LAB.N 09:05
PROVIDERS: ATTEND Internal Medicine Nephrology
DX: E11.9 Type 2 diabetes mellitus without complications (principal); N05.9 Unspecified nephritic syndrome with unspecified morphologic changes
CPT/HCPCS: 36415; 80048

== ENCOUNTER 2022-11-29 10:22 | Outpatient (CLI) | payer OTHER ==
[2022-11-29 19:45] LABS: ALBUMIN 3.9 g/dL (3.2-5.5); ALBUMIN/GLOBULIN RATIO 1.3 (1.0-2.2); ALKALINE PHOSPHATASE 38 IU/L (42-121); ALT ALANINE AMINOTRANSFERASE 16 IU/L (10-60); AST ASPARTATE AMINOTRANSFERASE 18 IU/L (10-42); BILIRUBIN,TOTAL 0.5 mg/dL (0.2-1.0); BUN - BLOOD UREA NITROGEN 21 mg/dL (6-20); CALCIUM 8.8 mg/dL (8.5-10.3); CARBON DIOXIDE - CO2 26 mmol/L (21-32); CHLORIDE 107 mmol/L (101-111); CHOL/HDL RATIO 3.3 (<5.0); CHOLESTEROL 107 mg/dL; CREATININE 1.6 mg/dL (0.6-1.3); GFR - MDRD 44 (>89); GLUCOSE 127 mg/dL (74-104); HDL CHOLESTEROL 32 mg/dL; LDL CHOLESTEROL,CALCULATED 59 mg/dL; LDL/HDL RATIO 1.8 (<3.6); POTASSIUM 4.2 mmol/L (3.5-4.5); SODIUM 140 mmol/L (135-145); TOTAL PROTEIN 6.8 g/dL (6.4-8.9); TRIGLYCERIDES 82 mg/dL (48-352); VLDL CHOLESTEROL 16 mg/dL
[2022-11-29 19:53] LABS: CREATININE,URINE 74.6 mg/dL
[2022-11-29 20:11] LABS: MICROALBUMIN,URINE > 225.0 mg/dL
[2022-11-30 04:50] LABS: ESTIMATED AVERAGE GLUCOSE 171 mg/dL (70-100); HEMOGLOBIN A1c% 7.6 % (4.27-6.07)
== END 2022-11-29 10:23 | disposition home or self-care (01) ==
LOC: LAB.N 10:22
PROVIDERS: ATTEND Student in an Organized Health Care Education/Training Program
DX: E10.69 Type 1 diabetes mellitus with other specified complication (principal)
CPT/HCPCS: 36415; 80053; 80061; 82043; 82570; 83036; 83721

== ENCOUNTER 2022-12-27 06:58 | Outpatient (CLI) | payer OTHER ==
--- NOTE | 2022-12-28 12:41 | Ultrasound Report ---
PROCEDURE: Retroperitoneal INDICATIONS: RENAL MASS TECHNIQUE: Real-time scanning was performed of the retroperitoneal organs, with image documentation. COMPARISON: 04/09/2022 FINDINGS: Kidneys: Kidneys are normal in size. Right kidney measures 11.3 cm long; left kidney measures 12.3 cm long. Right renal cortical thickness is 1.3 cm; left renal cortical thickness is 1.0 cm. A hypoe choic round mass arises from the lower pole left kidney and measures 2.3 x 2.3 x 1.7 cm. No internal vascularity. No other solid masses, hydronephrosis, or nephrolithiasis. Bladder: Pre-void bladder volume is 268 mL. Post-void residual is 12.4 mL. Pre-void images demonst rate no intraluminal masses or stones. On pre-void images, bilateral ureteral jets are noted with co tray Doppler interrogation. (Of note, ureteral jets may not be detectable in up to 25% of cases due t o insufficient differences in specific gravity between ureteral and bladder urine). Miscellaneous: No free abdominal fluid. The visible portion of the prostate gland measures 5.2 x 4. 1 x 4.8 cm for a volume of 53 cc IMPRESSION: 1. Possible left lower pole partially exophytic solid mass has increased size now measuring 2.3 cm, p reviously 2.1 cm. Further characterization with contrast-enhanced cross-sectional imaging, renal prot ocol CT or MRI is recommended. Reviewed by: Veena Donohue MD on 12/28/2022 12:39 PM PDT Approved by: Veena Donohue MD on 12/28/2022 12:39 PM PDT Station ID: [id number]
== END 2022-12-27 06:59 | disposition home or self-care (01) ==
LOC: DI 06:58
PROVIDERS: ATTEND Physician Assistant Medical
DX: N28.89 Other specified disorders of kidney and ureter (principal)

== ENCOUNTER 2023-06-01 14:58 | Outpatient (CLI) | payer OTHER ==
[2023-06-01 17:43] LABS: HCT - HEMATOCRIT 33.4 % (42.0-52.0); HGB - HEMOGLOBIN 11.3 g/dL (14.0-18.0); MEAN CORPUSCULAR HEMOGLOBIN 28.8 pg (27.0-31.0); MEAN CORPUSCULAR HGB CONC 33.8 g/dL (32.0-36.0); MEAN CORPUSCULAR VOLUME 85.2 fL (80.0-94.0); MEAN PLATELET VOLUME 10.8 fL (7.4-11.4); RED BLOOD COUNT 3.92 10^6/uL (4.70-6.10); RED CELL DISTRIBUTION WIDTH 12.9 % (12.0-15.0); WHITE BLOOD COUNT 7.6 x10^3/uL (4.8-10.8)
[2023-06-01 18:13] LABS: CALCIUM 9.9 mg/dL (8.5-10.3); CREATININE 2.2 mg/dL (0.6-1.3); PHOSPHORUS 4.4 mg/dL (2.5-5.0); POTASSIUM 4.7 mmol/L (3.5-4.5)
[2023-06-01 18:16] LABS: CREATININE,URINE 209.3 mg/dL
[2023-06-01 18:26] LABS: PROTEIN/CREATININE RATIO,URINE 2.5 (<=0.2)
== END 2023-06-01 14:59 | disposition home or self-care (01) ==
LOC: LAB.N 14:58
PROVIDERS: ATTEND Internal Medicine Nephrology
DX: N05.9 Unspecified nephritic syndrome with unspecified morphologic changes (principal); N25.81 Secondary hyperparathyroidism of renal origin; E83.30 Disorder of phosphorus metabolism, unspecified; R80.9 Proteinuria, unspecified; D70.9 Neutropenia, unspecified; D63.1 Anemia in chronic kidney disease
CPT/HCPCS: 36415; 80048; 82570; 83970; 84100; 84156; 85027

== ENCOUNTER 2023-10-19 07:09 | Outpatient (CLI) | payer OTHER ==
--- NOTE | 2023-10-19 14:39 | CT Report ---
PROCEDURE: Lung Cancer Screen INDICATIONS: TOBACCO ABUSE TECHNIQUE: A CT scan of the chest was performed. Intravenous contrast media was not administered. Images were re corded and evaluated at appropriate window settings. Reformats: axial MIP of the chest, coronal and s agittal. For radiation dose reduction, the following was used: automated exposure control, adjustment of mA and/or kV according to patient size. COMPARISON: Low-dose CT dated 11/05/2021. FINDINGS: Image quality: Excellent. Prior cancer history: None known Lungs and pleura: No pleural effusions. No pneumothorax. No suspicious pulmonary nodules which requi re follow up. Numerous juxtapleural benign-appearing nodules noted. Mediastinum: Heart size is normal. No pericardial effusion. No large vessel abnormality. No mediastin al adenopathy by size criteria. Chest wall and lower neck: Thyroid is unremarkable. No axillary or supraclavicular adenopathy by size . Bones: No aggressive osseous abnormality.DISH changes of the spine Upper Abdomen: Unremarkable. IMPRESSION: Lung RAD: 2 BENIGN Recommendation: Follow-up low-dose CT chest in 12 months if meets criteria Non-Lung Significant Findings: . DISH changes of the spine Reviewed by: Roc Proctor MD on 10/19/2023 2:38 PM PDT Approved by: Roc Proctor MD on 10/19/2023 2:38 PM PDT Station ID: [id number]
== END 2023-10-19 07:10 | disposition home or self-care (01) ==
LOC: DI 07:09
PROVIDERS: ATTEND Physician Assistant Medical
DX: Z12.2 Encounter for screening for malignant neoplasm of respiratory organs (principal); F17.200 Nicotine dependence, unspecified, uncomplicated